=== PATIENT | female | born 1980 | race American Indian/Alaskan Native ===

== ENCOUNTER 2016-10-11 09:01 | Emergency (ER) | payer SELFPAY ==
[2016-10-11] MEDS ORDERED: ZOFRAN ONE (09:22)
[2016-10-11] MEDS ORDERED: NACL 0.9% 1000 ML 1,000 ML ONE (09:23)
[2016-10-11] MEDS ORDERED: NACL 0.9% 1000 ML 1,000 ML IV ONE (09:32)
[2016-10-11] MEDS: ZOFRAN IV ONE (09:37)
[2016-10-11] MEDS: NACL 0.9% 1000 ML 1,000 ML IV ONE (09:37)
--- NOTE | 2016-10-11 09:39 | Emergency Department Report ---
ED Abdominal Pain HPI - General Chief Complaint: Abdominal Pain Stated Complaint: ABDOMINAL PAIN Time Seen by Provider: 10/11/16 09:11 Source: patient Mode of arrival: Stretcher Limitations: No Limitations - History of Present Illness Initial Comments: 36-year-old female here with abdominal pain nausea vomiting. Patient states that she developed abdominal pain last night. Started vomiting overnight. Presents here with continued nausea vomiting and crampy abdominal pain. She describes pain as diffuse and throughout her abdomen. No diarrhea no fevers chills. No dysuria. Patient denies . -: Sudden Location: diffuse Radiation: none Migration to: no migration Severity: moderate Quality: cramping Consistency: constant Associated Symptoms: nausea, vomiting - Related Data Previous Rx's Medication Instructions Recorded Last Taken Type Ibuprofen [Motrin] 600 mg PO Q8H PRN #30 tablet 10/11/16 Unknown Rx Ondansetron [Zofran Odt] 4 mg PO Q8HR PRN #10 tab.rapdis 10/11/16 Unknown Rx Allergies Allergy/AdvReac Type Severity Reaction Status Date / Time iodine Allergy Rash Verified 10/11/16 09:28 ED Review of Systems ROS: Stated complaint: ABDOMINAL PAIN Other details as noted in HPI Comment: All other systems reviewed and negative Constitutional: denies: chills, fever Eyes: denies: eye pain, eye discharge, vision change ENT: denies: ear pain, throat pain Respiratory: denies: cough, shortness of breath, wheezing Cardiovascular: denies: chest pain, palpitations Endocrine: no symptoms reported Gastrointestinal: abdominal pain, nausea. denies: diarrhea, constipation, hematemesis, melena, hematochezia Genitourinary: denies: urgency, dysuria, discharge Musculoskeletal: denies: back pain, joint swelling, arthralgia Skin: denies: rash, lesions Neurological: denies: headache, weakness, paresthesias Psychiatric: denies: anxiety, depression Hematological/Lymphatic: denies: easy bleeding, easy bruising ED Past Medical Hx - Past Medical History Previous Medical History?: No Hx Asthma: Yes Additional medical history: Bronchitis - Surgical History Past Surgical History?: Yes Additional Surgical History: tubal ligation - Family History Family history: no significant - Social History Smoking Status: Never Smoker Substance Use Type: None - Medications Home Medications: Home Medications Medication Instructions Recorded Confirmed Last Taken Type Ibuprofen [Motrin] 600 mg PO Q8H PRN #30 tablet 10/11/16 Unknown Rx Ondansetron [Zofran Odt] 4 mg PO Q8HR PRN #10 tab.rapdis 10/11/16 Unknown Rx ED Physical Exam - General Limitations: No Limitations General appearance: alert, in no apparent distress - Head Head exam: Present: atraumatic, normocephalic - Eye Eye exam: Present: normal appearance. Absent: scleral icterus, conjunctival injection - ENT ENT exam: Present: mucous membranes moist - Neck Neck exam: Present: normal inspection - Respiratory Respiratory exam: Present: normal lung sounds bilaterally. Absent: respiratory distress, wheezes, rales - Cardiovascular Cardiovascular Exam: Present: regular rate, normal rhythm. Absent: systolic murmur, diastolic murmur, rubs, gallop - GI/Abdominal GI/Abdominal exam: Present: soft, normal bowel sounds - Extremities Exam Extremities exam: Present: normal inspection - Back Exam Back exam: Present: normal inspection - Neurological Exam Neurological exam: Present: alert, oriented X3 - Psychiatric Psychiatric exam: Present: normal affect, normal mood - Skin Skin exam: Present: warm, dry, intact, normal color. Absent: rash ED Course Vital Signs 10/11/16 10/11/16 10/11/16 09:23 09:42 10:00 Temperature 97.4 F L Pulse Rate 96 H 58 L Respiratory 28 H 28 H 18 Rate Blood Pressure 111/61 Blood Pressure 119/53 [Right] O2 Sat by Pulse 99 Oximetry 10/11/16 10/11/16 10:25 14:30 Temperature Pulse Rate 69 58 L Respiratory 18 18 Rate Blood Pressure Blood Pressure 119/53 103/59 [Right] O2 Sat by Pulse Oximetry ED Medical Decision Making - Lab Data Result diagrams: 10/11/16 09:54 10/11/16 09:54 Laboratory Results - last 24 hr 10/11/16 10/11/16 10/11/16 09:54 09:54 09:54 WBC 16.2 H RBC 4.07 Hgb 12.7 Hct 39.1 MCV 96 MCH 31 MCHC 32 RDW 12.7 L Plt Count 175 Lymph % (Auto) 6.0 L Kleberg % (Auto) 3.4 Eos % (Auto) 0.3 Baso % (Auto) 0.3 Lymph # 1.0 L Kleberg # 0.5 Eos # 0.0 Baso # 0.0 Seg Neutrophils % 90.0 H Seg Neutrophils # 14.6 H Sodium 140 Potassium 3.7 Chloride 101.7 Carbon Dioxide 20 L Anion Gap 22 BUN 10 Creatinine 0.8 Estimated GFR > 60 BUN/Creatinine Ratio 12.50 Glucose 133 H Calcium 8.3 L Total Bilirubin 0.40 AST 21 ALT 6 L Alkaline Phosphatase 43 Total Protein 5.8 L Albumin 3.7 L Albumin/Globulin Ratio 1.8 Lipase 18 HCG, Qual Negative Urine Bilirubin Urine RBC (Auto) U Epithel Cells (Auto) 10/11/16 Unknown WBC RBC Hgb Hct MCV MCH MCHC RDW Plt Count Lymph % (Auto) Kleberg % (Auto) Eos % (Auto) Baso % (Auto) Lymph # Kleberg # Eos # Baso # Seg Neutrophils % Seg Neutrophils # Sodium Potassium Chloride Carbon Dioxide Anion Gap BUN Creatinine Estimated GFR BUN/Creatinine Ratio Glucose Calcium Total Bilirubin AST ALT Alkaline Phosphatase Total Protein Albumin Albumin/Globulin Ratio Lipase HCG, Qual Urine Bilirubin Neg Urine RBC (Auto) 2.0 U Epithel Cells (Auto) 1.0 - Medical Decision Making 36-year-old female here with abdominal pain and nausea vomiting. Unclear source at this point. Do not suspect a surgical cause and she does not have an acute abdomen. Plan to check labs including CBC chemistry lipase UA and and plan to reassess after IV fluids and Zofran and morphine. CT shows ovarian cyst. Patient's pain is significantly improved. I discussed the need for ultrasound to better characterize Uzair. Patient understands and agrees to this plan. Plan the ultrasound reading and if good blood flow and no obvious torsion plan to discharge patient home. I do not suspect torsion as this patient's pain is significantly relieved. Portions of this chart were dictated with dictation software. There may be dictation errors contained within this note. Critical care attestation.: If time is entered above; I have spent that time in minutes in the direct care of this critically ill patient, excluding procedure time. ED Disposition Clinical Impression: Ovarian cyst Disposition: - TO HOME OR SELFCARE Is pt being admited?: No Condition: Stable Instructions: Abdominal Pain (ED), Ovarian Cyst (ED) Prescriptions: Ibuprofen [Motrin] 600 mg PO Q8H PRN #30 tablet PRN Reason: Pain Ondansetron [Zofran Odt] 4 mg PO Q8HR PRN #10 tab.rapdis PRN Reason: Nausea And Vomiting Referrals: PRIMARY CARE,MD [Primary Care Provider] - 3-5 Days
[2016-10-11] MEDS: MORPHINE IV ONE (09:45)
[2016-10-11 10:20] LABS: Basophils % (Auto) 0.3 % (0.0-1.8); Eosinophils % (Auto) 0.3 % (0.0-4.3); Hematocrit 39.1 % (30.3-42.9); Hemoglobin 12.7 gm/dl (10.1-14.3); Mean Corpuscular HGB Conc 32 % (30-34); Mean Corpuscular Hemoglobin 31 pg (28-32); Mean Corpuscular Volume 96 fl (79-97); Platelet Count 175 K/mm3 (140-440); Red Blood Count 4.07 M/mm3 (3.65-5.03); Red Cell Distribution Width 12.7 % (13.2-15.2); White Blood Count 16.2 K/mm3 (4.5-11.0)
[2016-10-11 10:26] LABS: Alanine Aminotransferase 6 units/L (7-56); Albumin 3.7 g/dL (3.9-5); Albumin/Globulin Ratio 1.8 %; Alkaline Phosphatase 43 units/L (35-129); Anion Gap 22 mmol/L; Blood Urea Nitrogen 10 mg/dL (7-17); Calcium 8.3 mg/dL (8.4-10.2); Carbon Dioxide 20 mmol/L (22-30); Chloride 101.7 mmol/L (98-107); Glucose 133 mg/dL (65-100); Lipase 18 units/L (13-60); Potassium 3.7 mmol/L (3.6-5.0); Sodium 140 mmol/L (137-145); Total Protein 5.8 g/dL (6.3-8.2)
[2016-10-11 10:38] LABS: Bilirubin,Urine NEG (Negative); Blood,Urine SM (Negative); Ketones,Urine 80 mg/dL (Negative); Leukocyte Esterase,Urine NEG (Negative); Mucus,Urine FEW /HPF; Nitrite,Urine NEG (Negative); Protein,Urine <15 mg/dL mg/dL (Negative); Urobilinogen,Urine < 2.0 mg/dL (<2.0)
--- NOTE | 2016-10-11 12:09 | Cat Scan Report ---
CT OF THE ABDOMEN AND PELVIS WITHOUT CONTRAST HISTORY: Abdominal pain, nausea and vomiting. TECHNIQUE: Helical CT without contrast. Sagittal and coronal reformatted images. FINDINGS: A 4.5 x 3.5 x 4.1 cm cyst is identified in the right adnexa. This presumably represents a right ovarian cyst. The left adnexa is unremarkable. Intrauterine device is noted within the uterus. Within the limits of a noncontrast exam, the remaining abdominal and pelvic viscera are within normal limits. The liver, biliary system, pancreas, spleen, kidneys, adrenal glands and bladder are unremarkable. The bowel loops are normal caliber and wall thickness. Normal appendix. The aorta is normal caliber. No ascites, bulky adenopathy or inflammatory changes. The lung bases are clear. Normal heart size. No suspicious bony lesion. IMPRESSION: Right ovarian cyst as described. No acute inflammatory process is appreciated.
[2016-10-11 15:02] VITALS: BP 103/59
--- NOTE | 2016-10-11 16:14 | Ultrasound Report ---
Transvaginal pelvic ultrasound. History: Pelvic pain. Findings: Uterus is normal in size and configuration. The endometrial echo is normal in thickness at 3.6 mm. A linear echogenic structure within the endometrium is consistent with an IUD. There is a 3.6 cm in diameter cystic mass in the right ovary. There is a 2.5 cm in diameter complex lesion in the left ovary. There is no fluid within the cul-de-sac. Impression: 1. 3.6 cm right ovarian cyst. 2. 2.5 cm in diameter nonspecific complex lesion in the left ovary.
== END 2016-10-11 16:45 | disposition home or self-care (01) ==
LOC: ED 09:01
DX: N83.201 Unspecified ovarian cyst, right side (principal); J45.909 Unspecified asthma, uncomplicated; Z88.8 Allergy status to other drugs, medicaments and biological substances
CPT/HCPCS: 36415; 74176; 76830; 80053; 81001; 83690; 84703; 85025; 96361; 96374; 96375; 99284; J2270; J2405; J7030

== ENCOUNTER 2016-10-21 04:53 | Emergency (ER) | payer SELFPAY ==
[2016-10-21] MEDS ORDERED: DUONEB *Not for PRN Use IH ONE (05:07)
--- NOTE | 2016-10-21 07:31 | Emergency Department Report ---
ED Asthma HPI - General Chief Complaint: Adult Asthma Stated Complaint: SOB, WHEZZING Source: patient Mode of arrival: Ambulatory Limitations: No Limitations - History of Present Illness Initial Comments: 36 y/o F with a pmhx of asthma and bronchitis presents with yellow productive cough, mild nasal congestion, SOB, wheezing, and chest tightness. Pt states that she gets yearly bronchitis infections and has been seen for this multiple times in the past few years. Pt has been taking her inhaler multiple times with no relief of her symptoms. Pt denies any reported sick contacts. Denies a hx of pneumonia or smoking hx. Pt states that she is not and denies UPT at this time. MD Complaint: shortness of breath, wheezing -: days(s) (3) Asthma History: adult onset, history of prior ED visit (for bronchitis) Severity: moderate Context: none known Associated Symptoms: productive cough. denies: fever, chest pain, hemoptysis, leg edema, syncope Treatments Prior to Arrival: inhaled bronchodilator - Related Data Current Asthma Therapy: inhaled bronchodilator Previous Rx's Medication Instructions Recorded Last Taken Type Ibuprofen [Motrin] 600 mg PO Q8H PRN #30 tablet 10/11/16 Unknown Rx Ondansetron [Zofran Odt] 4 mg PO Q8HR PRN #10 tab.rapdis 10/11/16 Unknown Rx Albuterol Sulfate [Proair 90 mcg IH Q4-6H PRN #1 aer.pow.ba 10/21/16 Unknown Rx Respiclick] Azithromycin [Zithromax Z-JACKY] 250 mg PO DAILY #6 tablet 10/21/16 Unknown Rx predniSONE [Deltasone] 20 mg PO QDAY #5 tab 10/21/16 Unknown Rx Allergies Allergy/AdvReac Type Severity Reaction Status Date / Time iodine Allergy Rash Verified 10/11/16 09:28 ED Review of Systems ROS: Stated complaint: SOB, WHEZZING Other details as noted in HPI Constitutional: denies: chills, fever, weakness Eyes: denies: eye pain, eye discharge, vision change ENT: congestion. denies: ear pain, throat pain Respiratory: cough, shortness of breath, wheezing Cardiovascular: denies: chest pain, palpitations Endocrine: no symptoms reported Gastrointestinal: denies: abdominal pain, nausea, diarrhea Musculoskeletal: denies: back pain, joint swelling, arthralgia Skin: denies: rash, lesions Neurological: denies: headache, weakness, paresthesias Psychiatric: denies: anxiety, depression Hematological/Lymphatic: denies: easy bleeding, easy bruising ED Past Medical Hx - Past Medical History Previous Medical History?: Yes Hx Asthma: Yes Additional medical history: Bronchitis - Surgical History Past Surgical History?: Yes Additional Surgical History: tubal ligation - Social History Smoking Status: Current Every Day Smoker Substance Use Type: None - Medications Home Medications: Home Medications Medication Instructions Recorded Confirmed Last Taken Type Ibuprofen [Motrin] 600 mg PO Q8H PRN #30 tablet 10/11/16 Unknown Rx Ondansetron [Zofran Odt] 4 mg PO Q8HR PRN #10 tab.rapdis 10/11/16 Unknown Rx Albuterol Sulfate [Proair 90 mcg IH Q4-6H PRN #1 aer.pow.ba 10/21/16 Unknown Rx Respiclick] Azithromycin [Zithromax Z-JACKY] 250 mg PO DAILY #6 tablet 10/21/16 Unknown Rx predniSONE [Deltasone] 20 mg PO QDAY #5 tab 10/21/16 Unknown Rx ED Physical Exam - General Limitations: No Limitations General appearance: alert, in no apparent distress - Head Head exam: Present: atraumatic, normocephalic - Eye Eye exam: Present: normal appearance - ENT ENT exam: Present: normal orophraynx, other (PND noted at the back of the throat ) - Neck Neck exam: Present: normal inspection - Respiratory Respiratory exam: Present: wheezes (mild wheezing noted at the posterior lung centeno, s/p 2 neb treatment there was no wheezing auscultated in all lung centeno and pt states that she was feeling better), other (no assessory muscle use or panting with breathing noted on examination). Absent: respiratory distress, rales, rhonchi, stridor, chest wall tenderness, accessory muscle use, decreased breath sounds, prolonged expiratory - Cardiovascular Cardiovascular Exam: Present: regular rate, normal rhythm. Absent: systolic murmur, diastolic murmur, rubs, gallop - Back Exam Back exam: Present: normal inspection - Neurological Exam Neurological exam: Present: alert, oriented X3 - Skin Skin exam: Present: warm, dry, intact, normal color. Absent: rash ED Course Vital Signs 10/21/16 10/21/16 10/21/16 05:02 05:18 05:26 Temperature 98.4 F Pulse Rate 92 H Pulse Rate [ 89 92 H Anterior Bilateral Throughout] Respiratory 28 H Rate Respiratory 20 20 Rate [Anterior Bilateral Throughout] Blood Pressure 113/68 Blood Pressure [Right] O2 Sat by Pulse 96 Oximetry 10/21/16 10/21/16 10/21/16 08:53 09:40 10:23 Temperature 98.7 F Pulse Rate 87 Pulse Rate [ 105 H 78 Anterior Bilateral Throughout] Respiratory 18 Rate Respiratory 20 20 Rate [Anterior Bilateral Throughout] Blood Pressure Blood Pressure 117/77 [Right] O2 Sat by Pulse 92 Oximetry 10/21/16 10:41 Temperature Pulse Rate Pulse Rate [ Anterior Bilateral Throughout] Respiratory Rate Respiratory Rate [Anterior Bilateral Throughout] Blood Pressure Blood Pressure [Right] O2 Sat by Pulse 98 Oximetry - Reevaluation(s) Reevaluation #1: 10/21/16 07:29 around 5:15 AM this morning pt was given a duoneb treatment. I have ordered a CXR and EKG at this time. I have also ordered a shot of solu- medrol 40 mg for the wheezing. Pt was also ordered an albuterol treatment for her symptoms. 10/21/16 15:03 ED Medical Decision Making - EKG Data When compared to previous EKG there are: previous EKG unavailable Interpretation: normal EKG 10/21/16 15:08 Vent rate: 85 bpm DE interval:128 ms QRS duration: 80 ms QT/QTc: 366/435 ms PRT- axes 71 77 73 normal sinus rhythm, normal EKG - Radiology Data Radiology results: image reviewed RADIOLOGIST- unremarkable CXR - Medical Decision Making Pt is a known asthmatic, she also has recurrent bronchitis. Pt was given 2 breathing treatments this morning, one duoneb and the other albuterol. Pt reported to improvement s/p second treatment. ekg was conducted to r/u cardiac pathology due to the chest discomfort and SOB- unremarkable. Pt's CXR was unremarkable. Pt was diagnosed with bronchitis: given azithromycin, prednisone , and albuterol for the symptoms. Pt was discharged in stable condition, in no resp distress, and was alert and oriented. Critical care attestation.: If time is entered above; I have spent that time in minutes in the direct care of this critically ill patient, excluding procedure time. ED Disposition Clinical Impression: Bronchitis Disposition: DC-01 TO HOME OR SELFCARE Is pt being admited?: No Does the pt Need Aspirin: No Condition: Stable Instructions: Asthma (ED), Acute Bronchitis (ED), Chronic Bronchitis (ED) Additional Instructions: Please avoid all NSIADS while on prednisone. Please take medications as prescribed, if cough continues I would recommend an OTC cough suppressant. Please follow-up with PCP within 3-5 days. Please return to the ER with worsening symptoms such as: fever, chills, chest pain, SOB, or cough. Prescriptions: Albuterol Sulfate [Proair Respiclick] 90 mcg IH Q4-6H PRN #1 aer.pow.ba PRN Reason: Shortness Of Breath Azithromycin [Zithromax Z-JACKY] 250 mg PO DAILY #6 tablet predniSONE [Deltasone] 20 mg PO QDAY #5 tab Referrals: [facility] [Outside] - 3-5 Days ELISE HARRIS MD [Staff Physician] - 3-5 Days [facility]IMARY [facility]ARE, [Primary Care Provider] - 3-5 Days Forms: Work/School Release Form(ED)
--- NOTE | 2016-10-21 07:35 | XRay Report ---
Chest 2 views: History: Cough and chest tightness. Findings: Normal cardiomediastinal silhouette. Trachea is midline. No consolidation, pneumothorax or pleural effusion. Impression: No acute cardiopulmonary findings.
[2016-10-21] MEDS ORDERED: PROVENTIL IH ONE (07:57)
[2016-10-21 10:24] VITALS: BP 117/77
== END 2016-10-21 11:36 | disposition home or self-care (01) ==
LOC: ED 04:53
DX: J40 Bronchitis, not specified as acute or chronic (principal); F17.210 Nicotine dependence, cigarettes, uncomplicated; Z88.8 Allergy status to other drugs, medicaments and biological substances
CPT/HCPCS: 71020; 93005; 93010; 94640; 94760; 96372; 99283; J2920

== ENCOUNTER 2017-09-25 18:44 | Emergency (ER) | payer SELFPAY ==
[2017-09-25] MEDS ORDERED: PROVENTIL IH ONE ×2 (19:37→19:45)
[2017-09-25 19:44] VITALS: BP 113/73
--- NOTE | 2017-09-25 20:40 | Emergency Department Report ---
Upper Respiratory HPI - HPI Chief Complaint: Adult Asthma Stated Complaint: TROUBLE BREATHING Time Seen by Provider: 09/25/17 20:33 Duration: 3 Days URI Symptoms: Rhinorrhea: Yes, Sore Throat: Yes, Ear Pain: No, Cough: Yes, Shortness of Breath: Yes, Sick Contacts: No, Unable to Take Fluids: No, Urine Output Abnormal: No, Listless Behavior: No Other History: Patient states that F [place] female history of bronchitis who presents with shortness of breath wheezing 3 days states albuterol inhaler, productive yellow /green patient fever chills symptoms improved with nebulizer treatment given in triage - Home Meds and Allergies Home Medications: Previous Rx's Medication Instructions Recorded Last Taken Type Ondansetron [Zofran Odt] 4 mg PO Q8HR PRN #10 tab.rapdis 10/11/16 Unknown Rx Albuterol Sulfate [Proair 90 mcg IH Q4-6H PRN #1 aer.pow.ba 09/25/17 Unknown Rx Respiclick] Azithromycin [Zithromax Z-JACKY] 250 mg PO DAILY #6 tablet 09/25/17 Unknown Rx Benzonatate [Tessalon Perle] 100 mg PO TID PRN #30 capsule 09/25/17 Unknown Rx Ibuprofen [Motrin 600 MG tab] 600 mg PO Q8H PRN #30 tablet 09/25/17 Unknown Rx predniSONE [Deltasone] 40 mg PO QDAY #10 tab 09/25/17 Unknown Rx Allergies/Adverse Reactions: Allergies Allergy/AdvReac Type Severity Reaction Status Date / Time iodine Allergy Rash Verified 10/11/16 09:28 ED Review of Systems ROS: Stated complaint: TROUBLE BREATHING Other details as noted in HPI Constitutional: denies: chills, fever Eyes: denies: eye pain, eye discharge, vision change ENT: ear pain, throat pain, congestion Respiratory: cough, shortness of breath, wheezing Cardiovascular: denies: chest pain, palpitations Endocrine: no symptoms reported Gastrointestinal: denies: abdominal pain, nausea, diarrhea Genitourinary: denies: urgency, dysuria, discharge Musculoskeletal: denies: back pain, joint swelling, arthralgia Skin: denies: rash, lesions Neurological: denies: headache, weakness, paresthesias Psychiatric: denies: anxiety, depression Hematological/Lymphatic: denies: easy bleeding, easy bruising ED Past Medical Hx - Past Medical History Hx Asthma: Yes Additional medical history: Bronchitis - Surgical History Additional Surgical History: tubal ligation - Social History Smoking Status: Current Every Day Smoker Substance Use Type: None - Medications Home Medications: Home Medications Medication Instructions Recorded Confirmed Last Taken Type Ondansetron [Zofran Odt] 4 mg PO Q8HR PRN #10 tab.rapdis 10/11/16 Unknown Rx Albuterol Sulfate [Proair 90 mcg IH Q4-6H PRN #1 aer.pow.ba 09/25/17 Unknown Rx Respiclick] Azithromycin [Zithromax Z-JACKY] 250 mg PO DAILY #6 tablet 09/25/17 Unknown Rx Benzonatate [Tessalon Perle] 100 mg PO TID PRN #30 capsule 09/25/17 Unknown Rx Ibuprofen [Motrin 600 MG tab] 600 mg PO Q8H PRN #30 tablet 09/25/17 Unknown Rx predniSONE [Deltasone] 40 mg PO QDAY #10 tab 09/25/17 Unknown Rx ED Bronchiolitis Physical Exam - Exam General: Vital signs noted. No distress. Alert and acting appropriately. HEENT: Yes Pharyngeal Erythema, Yes Rhinorrhea, No Conjuctival Injection, No Dry Mucous Membranes Ear: Neither TM Bulge, Neither TM Erythema, Neither EAC Discharge Neck: No Adenopathy, No Rigidity Lungs: Yes Clear Lung Sounds, Yes Good Air Exchange, Yes Wheezes (mild exp upper lobes ), Yes Cough, No Stridor, No Nasal Flaring, No Retractions, No Use of Accessory Muscles Heart: Yes Regular, No Murmur Abdomen: Yes Normal Bowel Sounds, No Tenderness, No Peritoneal Signs Skin: No Rash, No Eczema Neurologic: Alert and oriented, no deficits. Musculoskeletal: Unremarkable. ED Bronchiolitis Tests - Testing Testing: CXR: Normal/Negative Treatments - Treaments Treatment: Improved Albuterol ED Physical Exam - General Limitations: No Limitations General appearance: alert, in no apparent distress - Head Head exam: Present: atraumatic, normocephalic - Eye Eye exam: Present: normal appearance - ENT ENT exam: Present: normal orophraynx, mucous membranes moist, TM's normal bilaterally, normal external ear exam - Expanded ENT Exam Expanded Throat exam: Positive: tonsillar erythema. Negative: normal inspection, tonsillar exudate, R peritonsillar mass, L peritonsillar mass - Neck Neck exam: Present: normal inspection, full ROM. Absent: tenderness, meningismus, lymphadenopathy, thyromegaly - Respiratory Respiratory exam: Present: normal lung sounds bilaterally, wheezes, chest wall tenderness. Absent: respiratory distress, rales, rhonchi, stridor, accessory muscle use, decreased breath sounds, prolonged expiratory - Cardiovascular Cardiovascular Exam: Present: regular rate, normal rhythm, normal heart sounds. Absent: systolic murmur, diastolic murmur, rubs, gallop - GI/Abdominal GI/Abdominal exam: Present: soft, normal bowel sounds. Absent: rebound, bruit, hernia - Rectal Rectal exam: Present: deferred - Extremities Exam Extremities exam: Present: normal inspection - Back Exam Back exam: Present: normal inspection - Neurological Exam Neurological exam: Present: alert, oriented X3 - Psychiatric Psychiatric exam: Present: normal affect, normal mood - Skin Skin exam: Present: warm, dry, intact, normal color. Absent: rash ED Course Vital Signs 09/25/17 19:37 Temperature 98.7 F Pulse Rate 83 Respiratory 18 Rate Blood Pressure 113/73 O2 Sat by Pulse 98 Oximetry ED Medical Decision Making - Radiology Data Radiology results: report reviewed, image reviewed no infiltrates no opacities - Medical Decision Making This is likely bronchitis as symptoms improve with the albuterol treatment 1 there is minimal exudate or wheezing at this time patient is hammertoe in ED without increased shortness of breath plan refill albuterol inhaler prednisone burst Tessalon Perles for cough ibuprofen for pain Z-Jacky follow-up with PCP in 2 -3 days as verbalizes understanding and agreement was signed will be DC'd home in stable condition at this time Critical care attestation.: If time is entered above; I have spent that time in minutes in the direct care of this critically ill patient, excluding procedure time. ED Disposition Clinical Impression: Bronchitis Disposition: DC-01 TO HOME OR SELFCARE Is pt being admited?: No Does the pt Need Aspirin: No Condition: Good Instructions: Chronic Bronchitis (ED) Prescriptions: Albuterol Sulfate [Proair Respiclick] 90 mcg IH Q4-6H PRN #1 aer.pow.ba PRN Reason: Shortness Of Breath Azithromycin [Zithromax Z-JACKY] 250 mg PO DAILY #6 tablet Benzonatate [Tessalon Perle] 100 mg PO TID PRN #30 capsule PRN Reason: Cough Ibuprofen [Motrin 600 MG tab] 600 mg PO Q8H PRN #30 tablet PRN Reason: Pain predniSONE [Deltasone] 40 mg PO QDAY #10 tab Referrals: [facility] [Outside] - 3-5 Days Forms: Work/School Release Form(ED) Time of Disposition: 20:45
[2017-09-25] MEDS ORDERED: DELTASONE PO ONE (20:41)
--- NOTE | 2017-09-25 21:05 | XRay Report ---
FINAL REPORT PROCEDURE: XR CHEST ROUTINE 2V TECHNIQUE: PA and lateral chest radiographs were obtained. CPT 35624 HISTORY: productive cough COMPARISON: No prior studies are available for comparison. FINDINGS: Heart: Normal. Mediastinum/Vessels: Normal. Lungs/Pleural space: No infiltrate, effusion, or pneumothorax. Bony thorax: No acute osseous abnormality. Other: IMPRESSION: No radiographic evidence of acute abnormality.
== END 2017-09-25 20:45 | disposition home or self-care (01) ==
LOC: ED 18:44
DX: J45.909 Unspecified asthma, uncomplicated (principal); F17.200 Nicotine dependence, unspecified, uncomplicated; Z98.51 Tubal ligation status; Z91.041 Radiographic dye allergy status
CPT/HCPCS: 71046; 94640; 99283; J7512

== ENCOUNTER 2018-07-13 07:56 | Emergency (ER) | payer MEDICARE, OTHER ==
[2018-07-13] MEDS ORDERED: IBUPROFEN PO ONE (08:59)
--- NOTE | 2018-07-13 09:26 | XRay Report ---
RIGHT RIBS, 3 VIEWS: History: pain. Routine views of the rib cage demonstrate normal mineralization with no significant contour abnormalities, fractures or destructive lesions. PA view of the chest demonstrates no underlying cardiopulmonary abnormalities, fluid or pneumothorax. IMPRESSION: Unremarkable right rib series.
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
[2018-07-13 15:22] VITALS: BP 125/75
== END 2018-07-13 10:30 | disposition home or self-care (01) ==
LOC: EEVIPCON 07:56 → ED 07:56
DX: S20.211A Contusion of right front wall of thorax, initial encounter (principal); J45.909 Unspecified asthma, uncomplicated; Z87.891 Personal history of nicotine dependence; Z91.041 Radiographic dye allergy status; Y04.0XXA Assault by unarmed brawl or fight, initial encounter; Y93.89 Activity, other specified; Y92.89 Other specified places as the place of occurrence of the external cause; Y99.8 Other external cause status

== ENCOUNTER 2019-09-04 00:38 | Emergency (ER) | payer SELFPAY ==
[2019-09-04] MEDS ORDERED: IPRATROPIUM/ALBUTEROL SULFATE 3 ML AMPUL.NEB IH ONE (00:46)
[2019-09-04] MEDS ORDERED: IPRATROPIUM 0.02% NEBU 2.5 ML IH ONE (01:04)
[2019-09-04] MEDS ORDERED: ALBUTEROL 2.5 MG/3 ML NEBU IH ONE (01:04)
[2019-09-04] MEDS ORDERED: predniSONE 20 MG TAB PO ONE (01:05)
--- NOTE | 2019-09-04 01:42 | XRay Report ---
CHEST 1 VIEW 09/04/2019 12:35 AM INDICATION / CLINICAL INFORMATION: cough, wheezing. COMPARISON: Right rib series from 07/13/2018. FINDINGS: SUPPORT DEVICES: None. HEART / MEDIASTINUM: No significant abnormality. LUNGS / PLEURA: No significant pulmonary or pleural abnormality. No pneumothorax. ADDITIONAL FINDINGS: No significant additional findings. IMPRESSION: 1. No acute abnormality of the chest. Signer Name: Ruben Clark MD Signed: 09/04/2019 1:38 AM Workstation Name: [id number]
--- NOTE | 2019-09-04 02:19 | Emergency Department Report ---
ED Shortness of Breath HPI - General Chief Complaint: Adult Asthma Stated Complaint: WALTER,ASTHMA Time Seen by Provider: 09/04/19 01:00 Source: patient Mode of arrival: Ambulatory Limitations: No Limitations - History of Present Illness Initial Comments: Patient is a 39-year-old F [place] female who is presenting with cough and wheeze. Patient has a history of asthma and occasional acute bronchitis. Patient states she is had some increased shortness of breath and wheezing for the last 2 days. She does not have any medications for home treatment. She denies fevers chills nausea vomiting diarrhea. - Related Data Previous Rx's Medication Instructions Recorded Last Taken Type Ondansetron [Zofran Odt] 4 mg PO Q8HR PRN #10 tab.rapdis 10/11/16 Unknown Rx Albuterol Sulfate [Proair 90 mcg IH Q4-6H PRN #1 aer.pow.ba 09/25/17 Unknown Rx Respiclick] Azithromycin [Zithromax Z-JACKY] 250 mg PO DAILY #6 tablet 09/25/17 Unknown Rx Benzonatate [Tessalon Perle] 100 mg PO TID PRN #30 capsule 09/25/17 Unknown Rx Ibuprofen [Motrin 600 MG tab] 600 mg PO Q8H PRN #30 tablet 09/25/17 Unknown Rx predniSONE [Deltasone] 40 mg PO QDAY #10 tab 09/25/17 Unknown Rx Clindamycin [Clindamycin CAP] 300 mg PO Q8H 10 Days #30 cap 12/14/17 Unknown Rx HYDROcodone/ACETAMINOPHEN [[place] 1 each PO Q6H PRN #12 tablet 12/14/17 Unknown Rx 5-325 Tablet] Ibuprofen [Motrin 600 MG tab] 600 mg PO Q8H PRN #15 tablet 12/14/17 Unknown Rx Promethazine [Phenergan TAB] 25 mg PO Q6HR PRN #12 tab 12/14/17 Unknown Rx ALBUTEROL Inhaler(NF) [VENTOLIN 1 puff IH Q4-6H PRN #1 inha 06/15/18 Unknown Rx Inhaler(NF)] Prednisone [predniSONE 10 mg 10 mg PO .TAPER #1 tab.ds.pk 06/15/18 Unknown Rx (6-Day Pack, 21 Tabs)] Ketorolac [Toradol] 10 mg PO Q6H PRN #12 tablet 07/13/18 Unknown Rx Albuterol Mdi (or & Nicu Only) 2 puff IH QID PRN #1 inhalation 09/04/19 Unknown Rx [ProAir HFA Inhaler] Benzonatate [Tessalon Perles] 100 mg PO Q8HR #10 capsule 09/04/19 Unknown Rx predniSONE [Deltasone] 20 mg PO QDAY #5 tab 09/04/19 Unknown Rx Allergies Allergy/AdvReac Type Severity Reaction Status Date / Time iodine Allergy Rash Verified 06/15/18 07:09 ED Review of Systems ROS: Stated complaint: WALTER,ASTHMA Other details as noted in HPI Comment: All other systems reviewed and negative ED Past Medical Hx - Past Medical History Previous Medical History?: Yes Hx Asthma: Yes (Bronchitis) Additional medical history: Bronchitis - Surgical History Past Surgical History?: Yes Additional Surgical History: tubal ligation - Social History Smoking Status: Current Some Day Smoker Substance Use Type: None - Medications Home Medications: Home Medications Medication Instructions Recorded Confirmed Last Taken Type Ondansetron [Zofran Odt] 4 mg PO Q8HR PRN #10 tab.rapdis 10/11/16 Unknown Rx Albuterol Sulfate [Proair 90 mcg IH Q4-6H PRN #1 aer.pow.ba 09/25/17 Unknown Rx Respiclick] Azithromycin [Zithromax Z-JACKY] 250 mg PO DAILY #6 tablet 09/25/17 Unknown Rx Benzonatate [Tessalon Perle] 100 mg PO TID PRN #30 capsule 09/25/17 Unknown Rx Ibuprofen [Motrin 600 MG tab] 600 mg PO Q8H PRN #30 tablet 09/25/17 Unknown Rx predniSONE [Deltasone] 40 mg PO QDAY #10 tab 09/25/17 Unknown Rx Clindamycin [Clindamycin CAP] 300 mg PO Q8H 10 Days #30 cap 12/14/17 Unknown Rx HYDROcodone/ACETAMINOPHEN [[place] 1 each PO Q6H PRN #12 tablet 12/14/17 Unknown Rx 5-325 Tablet] Ibuprofen [Motrin 600 MG tab] 600 mg PO Q8H PRN #15 tablet 12/14/17 Unknown Rx Promethazine [Phenergan TAB] 25 mg PO Q6HR PRN #12 tab 12/14/17 Unknown Rx ALBUTEROL Inhaler(NF) [VENTOLIN 1 puff IH Q4-6H PRN #1 inha 06/15/18 Unknown Rx Inhaler(NF)] Prednisone [predniSONE 10 mg 10 mg PO .TAPER #1 tab.ds.pk 06/15/18 Unknown Rx (6-Day Pack, 21 Tabs)] Ketorolac [Toradol] 10 mg PO Q6H PRN #12 tablet 07/13/18 Unknown Rx Albuterol Mdi (or & Nicu Only) 2 puff IH QID PRN #1 inhalation 09/04/19 Unknown Rx [ProAir HFA Inhaler] Benzonatate [Tessalon Perles] 100 mg PO Q8HR #10 capsule 09/04/19 Unknown Rx predniSONE [Deltasone] 20 mg PO QDAY #5 tab 09/04/19 Unknown Rx ED Physical Exam - General Limitations: No Limitations General appearance: alert, in no apparent distress - Head Head exam: Present: atraumatic, normocephalic - Eye Eye exam: Present: normal appearance, PERRL, EOMI - ENT ENT exam: Present: mucous membranes moist - Neck Neck exam: Present: normal inspection. Absent: tenderness - Respiratory Respiratory exam: Present: respiratory distress, wheezes, accessory muscle use, prolonged expiratory. Absent: normal lung sounds bilaterally, rales, rhonchi, chest wall tenderness, decreased breath sounds - Cardiovascular Cardiovascular Exam: Present: regular rate, normal rhythm, normal heart sounds. Absent: systolic murmur, diastolic murmur, rubs, gallop - GI/Abdominal GI/Abdominal exam: Present: soft, normal bowel sounds. Absent: distended, tenderness, guarding, rebound - Extremities Exam Extremities exam: Present: normal inspection - Back Exam Back exam: Present: normal inspection - Neurological Exam Neurological exam: Present: alert, oriented X3 - Psychiatric Psychiatric exam: Present: normal affect, normal mood - Skin Skin exam: Present: warm, dry, intact, normal color. Absent: rash ED Course Vital Signs 09/04/19 09/04/19 09/04/19 00:41 01:06 01:16 Temperature 98.1 F Pulse Rate 74 Pulse Rate [ 92 H 95 H Anterior Bilateral Throughout] Respiratory 22 Rate Respiratory 16 18 Rate [Anterior Bilateral Throughout] Blood Pressure 123/82 O2 Sat by Pulse 100 Oximetry ED Medical Decision Making - Radiology Data [facility] [address] [place] [address] XRay Report Signed Patient: RICH SNELL MR#: [id number] : 1980 Acct:[id number] Age/Sex: 39 / F ADM Date: 09/04/19 Loc: ED Attending Dr: Ordering Physician: RENEE CABALLERO MD Date of Service: 09/04/19 Procedure(s): XR chest 1V ap Accession Number(s): [id number] cc: RENEE CABALLERO MD Fluoro Time In Minutes: CHEST 1 VIEW 09/04/2019 12:35 AM INDICATION / CLINICAL INFORMATION: cough, wheezing. COMPARISON: Right rib series from 07/13/2018. FINDINGS: SUPPORT DEVICES: None. HEART / MEDIASTINUM: No significant abnormality. LUNGS / PLEURA: No significant pulmonary or pleural abnormality. No pneumothorax. ADDITIONAL FINDINGS: No significant additional findings. IMPRESSION: 1. No acute abnormality of the chest. Signer Name: Ruben Clark MD Signed: 09/04/2019 1:38 AM Workstation Name: [id number] - Medical Decision Making Patient is a 39-year-old F [place] female is presenting with wheezing diffusely. Patient received hour-long neb treatment which did improve her symptoms. At the time of discharge patient lungs are clear. She states she feels much improved and is ready for discharge. Patient's chest x-ray shows no acute abnormality and it does not appear to be advanced stages of pulmonary infiltrate consistent with COVID-19 needing admission. Patient will be discharged home with medications for symptomatic relief Critical care attestation.: If time is entered above; I have spent that time in minutes in the direct care of this critically ill patient, excluding procedure time. ED Disposition Clinical Impression: Acute asthma exacerbation Qualifiers: Asthma severity: moderate Asthma persistence: unspecified Qualified Code(s): J45.901 - Unspecified asthma with (acute) exacerbation Disposition: DC-01 TO HOME OR SELFCARE Is pt being admited?: No Does the pt Need Aspirin: No Condition: Stable Instructions: Asthma (ED) Referrals: MARIA DEL ROSARIO NICHOLSON MD [Staff Physician] - 3-5 Days Time of Disposition: 02:26
[2019-09-04 03:03] VITALS: BP 100/55
== END 2019-09-04 03:00 | disposition home or self-care (01) ==
LOC: ED 00:38
DX: J45.901 Unspecified asthma with (acute) exacerbation (principal); F17.200 Nicotine dependence, unspecified, uncomplicated; Z98.51 Tubal ligation status; Z91.041 Radiographic dye allergy status; Z79.899 Other long term (current) drug therapy
CPT/HCPCS: 71045; 94640; 99283; J7512; 94644

== ENCOUNTER 2019-11-18 06:17 | Emergency (ER) | payer SELFPAY ==
[2019-11-18] MEDS ORDERED: methylPREDNISolone Sod Succinate 125 MG/2 ML INJ IV ONE (06:29)
[2019-11-18] MEDS ORDERED: MAGNESIUM SULFATE 2 GM/50 ML BAG IV ONE (06:30)
[2019-11-18] MEDS ORDERED: IPRATROPIUM/ALBUTEROL SULFATE 3 ML AMPUL.NEB IH ONE (06:31)
--- NOTE | 2019-11-18 08:00 | Emergency Department Report ---
ED Asthma HPI - General Chief Complaint: Adult Asthma Stated Complaint: SHORT OF BREATH Time Seen by Provider: 11/18/19 07:17 Source: patient Mode of arrival: Ambulatory Limitations: No Limitations - History of Present Illness Initial Comments: pt is a 39 yo female who presents to the ED with c/o asthma exacerbation that began this morning. she states that her inhaler broke this morning so she was unable to use her rescue inhaler. she has associated SOB, wheezing, and occasional dry cough. she denies any fever, n/v/d, ear pain, chest congestion, productive cough, sore throat. PMHx asthma. no allergies to meds. LNMP: last week. she has never been intubated for her asthma. she has never had to be admitted for asthma. - Related Data Previous Rx's Medication Instructions Recorded Last Taken Type Ondansetron [Zofran Odt] 4 mg PO Q8HR PRN #10 tab.rapdis 10/11/16 Unknown Rx Albuterol Sulfate [Proair 90 mcg IH Q4-6H PRN #1 aer.pow.ba 09/25/17 Unknown Rx Respiclick] Azithromycin [Zithromax Z-JACKY] 250 mg PO DAILY #6 tablet 09/25/17 Unknown Rx Benzonatate [Tessalon Perle] 100 mg PO TID PRN #30 capsule 09/25/17 Unknown Rx Ibuprofen [Motrin 600 MG tab] 600 mg PO Q8H PRN #30 tablet 09/25/17 Unknown Rx predniSONE [Deltasone] 40 mg PO QDAY #10 tab 09/25/17 Unknown Rx Clindamycin [Clindamycin CAP] 300 mg PO Q8H 10 Days #30 cap 12/14/17 Unknown Rx HYDROcodone/ACETAMINOPHEN [[place] 1 each PO Q6H PRN #12 tablet 12/14/17 Unknown Rx 5-325 Tablet] Ibuprofen [Motrin 600 MG tab] 600 mg PO Q8H PRN #15 tablet 12/14/17 Unknown Rx Promethazine [Phenergan TAB] 25 mg PO Q6HR PRN #12 tab 12/14/17 Unknown Rx ALBUTEROL Inhaler(NF) [VENTOLIN 1 puff IH Q4-6H PRN #1 inha 06/15/18 Unknown Rx Inhaler(NF)] Prednisone [predniSONE 10 mg 10 mg PO .TAPER #1 tab.ds.pk 06/15/18 Unknown Rx (6-Day Pack, 21 Tabs)] Ketorolac [Toradol] 10 mg PO Q6H PRN #12 tablet 07/13/18 Unknown Rx Albuterol Mdi (or & Nicu Only) 2 puff IH QID PRN #1 inhalation 09/04/19 Unknown Rx [ProAir HFA Inhaler] Benzonatate [Tessalon Perles] 100 mg PO Q8HR #10 capsule 09/04/19 Unknown Rx predniSONE [Deltasone] 20 mg PO QDAY #5 tab 09/04/19 Unknown Rx Albuterol Sulfate [Proventil Hfa] 6.7 gm IH TID PRN #1 hfa.aer.ad 11/18/19 Unknown Rx Prednisone [predniSONE 10 mg 10 mg PO .TAPER #1 tab.ds.pk 11/18/19 Unknown Rx (6-Day Pack, 21 Tabs)] Allergies Allergy/AdvReac Type Severity Reaction Status Date / Time iodine Allergy Rash Verified 06/15/18 07:09 ED Review of Systems ROS: Stated complaint: SHORT OF BREATH Other details as noted in HPI Comment: All other systems reviewed and negative ED Past Medical Hx - Past Medical History Previous Medical History?: Yes Hx Asthma: Yes (Bronchitis) Additional medical history: Bronchitis - Surgical History Past Surgical History?: Yes Additional Surgical History: tubal ligation - Social History Smoking Status: Former Smoker - Medications Home Medications: Home Medications Medication Instructions Recorded Confirmed Last Taken Type Ondansetron [Zofran Odt] 4 mg PO Q8HR PRN #10 tab.rapdis 10/11/16 Unknown Rx Albuterol Sulfate [Proair 90 mcg IH Q4-6H PRN #1 aer.pow.ba 09/25/17 Unknown Rx Respiclick] Azithromycin [Zithromax Z-JACKY] 250 mg PO DAILY #6 tablet 09/25/17 Unknown Rx Benzonatate [Tessalon Perle] 100 mg PO TID PRN #30 capsule 09/25/17 Unknown Rx Ibuprofen [Motrin 600 MG tab] 600 mg PO Q8H PRN #30 tablet 09/25/17 Unknown Rx predniSONE [Deltasone] 40 mg PO QDAY #10 tab 09/25/17 Unknown Rx Clindamycin [Clindamycin CAP] 300 mg PO Q8H 10 Days #30 cap 12/14/17 Unknown Rx HYDROcodone/ACETAMINOPHEN [[place] 1 each PO Q6H PRN #12 tablet 12/14/17 Unknown Rx 5-325 Tablet] Ibuprofen [Motrin 600 MG tab] 600 mg PO Q8H PRN #15 tablet 12/14/17 Unknown Rx Promethazine [Phenergan TAB] 25 mg PO Q6HR PRN #12 tab 12/14/17 Unknown Rx ALBUTEROL Inhaler(NF) [VENTOLIN 1 puff IH Q4-6H PRN #1 inha 06/15/18 Unknown Rx Inhaler(NF)] Prednisone [predniSONE 10 mg 10 mg PO .TAPER #1 tab.ds.pk 06/15/18 Unknown Rx (6-Day Pack, 21 Tabs)] Ketorolac [Toradol] 10 mg PO Q6H PRN #12 tablet 07/13/18 Unknown Rx Albuterol Mdi (or & Nicu Only) 2 puff IH QID PRN #1 inhalation 09/04/19 Unknown Rx [ProAir HFA Inhaler] Benzonatate [Tessalon Perles] 100 mg PO Q8HR #10 capsule 09/04/19 Unknown Rx predniSONE [Deltasone] 20 mg PO QDAY #5 tab 09/04/19 Unknown Rx Albuterol Sulfate [Proventil Hfa] 6.7 gm IH TID PRN #1 hfa.aer.ad 11/18/19 Unknown Rx Prednisone [predniSONE 10 mg 10 mg PO .TAPER #1 tab.ds.pk 11/18/19 Unknown Rx (6-Day Pack, 21 Tabs)] ED Physical Exam - General Limitations: No Limitations General appearance: alert, in no apparent distress - Head Head exam: Present: atraumatic, normocephalic - Eye Eye exam: Present: normal appearance - ENT ENT exam: Present: mucous membranes moist - Respiratory Respiratory exam: Present: normal lung sounds bilaterally. Absent: respiratory distress, wheezes, rales, rhonchi, stridor, chest wall tenderness, accessory muscle use, decreased breath sounds, prolonged expiratory - Cardiovascular Cardiovascular Exam: Present: regular rate, normal rhythm, normal heart sounds. Absent: systolic murmur, diastolic murmur, rubs, gallop - Neurological Exam Neurological exam: Present: alert, oriented X3 - Psychiatric Psychiatric exam: Present: normal affect, normal mood - Skin Skin exam: Present: warm, dry, intact ED Course Vital Signs 11/18/19 11/18/19 11/18/19 06:22 06:45 07:03 Temperature 97.6 F Pulse Rate 97 H Pulse Rate [ 72 Bilateral Throughout] Respiratory 20 Rate Respiratory 18 Rate [Bilateral Throughout] Blood Pressure 125/77 Blood Pressure [Left] O2 Sat by Pulse 95 96 Oximetry 11/18/19 08:33 Temperature Pulse Rate 81 Pulse Rate [ Bilateral Throughout] Respiratory 18 Rate Respiratory Rate [Bilateral Throughout] Blood Pressure Blood Pressure 121/74 [Left] O2 Sat by Pulse 98 Oximetry ED Medical Decision Making - Lab Data Vital Signs 11/18/19 11/18/19 11/18/19 06:22 06:45 07:03 Temperature 97.6 F Pulse Rate 97 H Pulse Rate [ 72 Bilateral Throughout] Respiratory 20 Rate Respiratory 18 Rate [Bilateral Throughout] Blood Pressure 125/77 Blood Pressure [Left] O2 Sat by Pulse 95 96 Oximetry 11/18/19 08:33 Temperature Pulse Rate 81 Pulse Rate [ Bilateral Throughout] Respiratory 18 Rate Respiratory Rate [Bilateral Throughout] Blood Pressure Blood Pressure 121/74 [Left] O2 Sat by Pulse 98 Oximetry - Medical Decision Making pt is a 39 yo female who presents to the ED with c/o asthma exacerbation that began this morning. she states that her inhaler broke this morning so she was unable to use her rescue inhaler. she has associated SOB, wheezing, and occasional dry cough. she denies any fever, n/v/d, ear pain, chest congestion, productive cough, sore throat. PMHx asthma. no allergies to meds. LNMP: last week. she has never been intubated for her asthma. she has never had to be admitted for asthma. Vitals are normal. Patient given DuoNeb, Solu-Medrol, magnesium prior to my evaluation. On exam breath sounds are clear bilaterally, no wheezing, no rales, no rhonchi, no stridor, no respiratory distress, no accessory muscle use. Patient states that she feels significantly better and is ready to go home. She has no further wheezing. She does not have any clinical signs of bacterial pneumonia or bronchitis. Patient given prescription for al buterol inhaler and prednisone taper. Advised patient Please use medication as prescribed. Follow-up with your primary care doctor. Return to emergency room for any new or worsening symptoms. - Differential Diagnosis Asthma, reactive airway, URI, pneumonia, bronchitis, viral syndrome Critical care attestation.: If time is entered above; I have spent that time in minutes in the direct care of this critically ill patient, excluding procedure time. ED Disposition Clinical Impression: Asthma exacerbation Qualifiers: Asthma severity: unspecified severity Asthma persistence: unspecified Qualified Code(s): J45.901 - Unspecified asthma with (acute) exacerbation Disposition: TO HOME OR SELFCARE Is pt being admited?: No Does the pt Need Aspirin: No Condition: Stable Instructions: Asthma (ED) Additional Instructions: Please use medication as prescribed. Follow-up with your primary care doctor. Return to emergency room for any new or worsening symptoms. Prescriptions: Prednisone [predniSONE 10 mg (6-Day Pack, 21 Tabs)] 10 mg PO .TAPER #1 tab.ds.pk Albuterol Sulfate [Proventil Hfa] 6.7 gm IH TID PRN #1 hfa.aer.ad PRN Reason: Shortness Of Breath Referrals: NALLELY TROTTER MD [Primary Care Provider] - 2-3 Days MARIA DEL ROSARIO NICHOLSON MD [Staff Physician] - 2-3 Days [facility] [Provider Group] - 2-3 Days Time of Disposition: 07:58 Print Language: MALAY
[2019-11-18 08:34] VITALS: BP 121/74
== END 2019-11-18 08:33 | disposition home or self-care (01) ==
LOC: ED 06:17
DX: J45.901 Unspecified asthma with (acute) exacerbation (principal); Z79.899 Other long term (current) drug therapy; Z87.891 Personal history of nicotine dependence; Z98.51 Tubal ligation status; Z91.041 Radiographic dye allergy status
CPT/HCPCS: 94640; 96365; 96375; 99283; J2930; J3475; 94644

== ENCOUNTER 2019-12-02 03:11 | Emergency (ER) | payer SELFPAY | END 2019-12-02 03:15 | disposition left against medical advice (07) | LOC: ED 03:11 | DX: R06.00 Dyspnea, unspecified (principal); Z53.21 Procedure and treatment not carried out due to patient leaving prior to being seen by health care provider ==

== ENCOUNTER 2019-12-14 02:19 | Emergency (ER) | payer SELFPAY ==
[2019-12-14] MEDS ORDERED: ALBUTEROL 2.5 MG/3 ML NEBU IH ONE ×2 (02:40→02:49)
[2019-12-14] MEDS ORDERED: IPRATROPIUM 0.02% NEBU 2.5 ML IH ONE ×2 (02:40→02:49)
[2019-12-14] MEDS ORDERED: methylPREDNISolone Sod Succinate 125 MG/2 ML INJ IM ONE (02:56)
[2019-12-14] MEDS ORDERED: ACETAMINOPHEN 500 MG TAB PO ONE (02:56)
--- NOTE | 2019-12-14 03:30 | XRay Report ---
CHEST 1 VIEW INDICATION / CLINICAL INFORMATION: dyspnea, asthma. COMPARISON: 09/04/2019 FINDINGS: SUPPORT DEVICES: None. HEART / MEDIASTINUM: No significant abnormality. LUNGS / PLEURA: No significant pulmonary or pleural abnormality. No pneumothorax. ADDITIONAL FINDINGS: No significant additional findings. IMPRESSION: 1. No acute findings. No interval change. Signer Name: Cindy Keene MD Signed: 12/14/2019 3:26 AM Workstation Name: [id number]
--- NOTE | 2019-12-14 03:54 | Emergency Department Report ---
ED Shortness of Breath HPI - General Chief Complaint: Adult Asthma Stated Complaint: COUGH/WALTER Source: patient, family Mode of arrival: Stretcher Limitations: No Limitations - History of Present Illness Initial Comments: Patient is a 39-year-old -[place] female with a history of chronic asthma and bronchitis who presents to the ED with complaint of acute onset persistent shortness of breath, wheezing and dry cough with chest wall pain for the last 12 hours. Patient states that she ran out of her inhaler at home and her symptoms got worse especially around 4 hours ago. Patient denies dizziness, syncope, fever, chills, nasal and sinus congestion, sore throat, abdominal pain, nausea, vomiting, syncope, palpitations, neck pain, diaphoresis or sore throat. MD Complaint: shortness of breath, cough, "asthma attack" -: Sudden, hour(s) (12) Radiation: back Severity: moderate Pain Scale: 5 Quality: dull, aching Consistency: constant Improves With: bronchodilators Worsens With: nothing Known History Of: asthma Context: medication noncompliance, anxiety Associated Symptoms: denies other symptoms, chest pain, cough Treatments Prior to Arrival: none - Related Data Home Oxygen Therapy: No Previous Rx's Medication Instructions Recorded Last Taken Type Ondansetron [Zofran Odt] 4 mg PO Q8HR PRN #10 tab.rapdis 10/11/16 Unknown Rx Albuterol Sulfate [Proair 90 mcg IH Q4-6H PRN #1 aer.pow.ba 09/25/17 Unknown Rx Respiclick] Azithromycin [Zithromax Z-JACKY] 250 mg PO DAILY #6 tablet 09/25/17 Unknown Rx Benzonatate [Tessalon Perle] 100 mg PO TID PRN #30 capsule 09/25/17 Unknown Rx predniSONE [Deltasone] 40 mg PO QDAY #10 tab 09/25/17 Unknown Rx Clindamycin [Clindamycin CAP] 300 mg PO Q8H 10 Days #30 cap 12/14/17 Unknown Rx HYDROcodone/ACETAMINOPHEN [Mutual 1 each PO Q6H PRN #12 tablet 12/14/17 Unknown Rx 5-325 Tablet] Ibuprofen [Motrin 600 MG tab] 600 mg PO Q8H PRN #15 tablet 12/14/17 Unknown Rx Promethazine [Phenergan TAB] 25 mg PO Q6HR PRN #12 tab 12/14/17 Unknown Rx ALBUTEROL Inhaler(NF) [VENTOLIN 1 puff IH Q4-6H PRN #1 inha 06/15/18 Unknown Rx Inhaler(NF)] Ketorolac [Toradol] 10 mg PO Q6H PRN #12 tablet 07/13/18 Unknown Rx Albuterol Mdi (or & Nicu Only) 2 puff IH QID PRN #1 inhalation 09/04/19 Unknown Rx [ProAir HFA Inhaler] predniSONE [Deltasone] 20 mg PO QDAY #5 tab 09/04/19 Unknown Rx Prednisone [predniSONE 10 mg 10 mg PO .TAPER #1 tab.ds.pk 11/18/19 Unknown Rx (6-Day Pack, 21 Tabs)] Albuterol Sulfate [Proventil Hfa] 6.7 gm IH TID PRN #1 hfa.aer.ad 12/14/19 Unknown Rx Benzonatate [Tessalon Perles] 100 mg PO Q8HR #30 capsule 12/14/19 Unknown Rx Ibuprofen [Motrin 600 MG tab] 600 mg PO Q8H PRN #24 tablet 12/14/19 Unknown Rx Prednisone [predniSONE 10 mg 10 mg PO .TAPER 21 Days #1 12/14/19 Unknown Rx (6-Day Pack, 21 Tabs)] tab.ds.pk Allergies Allergy/AdvReac Type Severity Reaction Status Date / Time iodine Allergy Rash Verified 06/15/18 07:09 ED Review of Systems ROS: Stated complaint: COUGH/WALTER Other details as noted in HPI Constitutional: denies: chills, fever Eyes: denies: eye pain, eye discharge, vision change ENT: congestion. denies: ear pain, throat pain Respiratory: cough, shortness of breath, wheezing Cardiovascular: chest pain. denies: palpitations Endocrine: no symptoms reported Gastrointestinal: denies: abdominal pain, nausea, diarrhea Genitourinary: denies: urgency, dysuria, discharge Musculoskeletal: denies: back pain, joint swelling, arthralgia Skin: denies: rash, lesions Neurological: denies: headache, weakness, paresthesias Psychiatric: denies: anxiety, depression Hematological/Lymphatic: denies: easy bleeding, easy bruising ED Past Medical Hx - Past Medical History Previous Medical History?: Yes Hx Asthma: Yes (Bronchitis) Additional medical history: Bronchitis - Surgical History Past Surgical History?: Yes Additional Surgical History: tubal ligation - Social History Smoking Status: Former Smoker Substance Use Type: None - Medications Home Medications: Home Medications Medication Instructions Recorded Confirmed Last Taken Type Ondansetron [Zofran Odt] 4 mg PO Q8HR PRN #10 tab.rapdis 10/11/16 Unknown Rx Albuterol Sulfate [Proair 90 mcg IH Q4-6H PRN #1 aer.pow.ba 09/25/17 Unknown Rx Respiclick] Azithromycin [Zithromax Z-JACKY] 250 mg PO DAILY #6 tablet 09/25/17 Unknown Rx Benzonatate [Tessalon Perle] 100 mg PO TID PRN #30 capsule 09/25/17 Unknown Rx predniSONE [Deltasone] 40 mg PO QDAY #10 tab 09/25/17 Unknown Rx Clindamycin [Clindamycin CAP] 300 mg PO Q8H 10 Days #30 cap 12/14/17 Unknown Rx HYDROcodone/ACETAMINOPHEN [Mutual 1 each PO Q6H PRN #12 tablet 12/14/17 Unknown Rx 5-325 Tablet] Ibuprofen [Motrin 600 MG tab] 600 mg PO Q8H PRN #15 tablet 12/14/17 Unknown Rx Promethazine [Phenergan TAB] 25 mg PO Q6HR PRN #12 tab 12/14/17 Unknown Rx ALBUTEROL Inhaler(NF) [VENTOLIN 1 puff IH Q4-6H PRN #1 inha 06/15/18 Unknown Rx Inhaler(NF)] Ketorolac [Toradol] 10 mg PO Q6H PRN #12 tablet 07/13/18 Unknown Rx Albuterol Mdi (or & Nicu Only) 2 puff IH QID PRN #1 inhalation 09/04/19 Unknown Rx [ProAir HFA Inhaler] predniSONE [Deltasone] 20 mg PO QDAY #5 tab 09/04/19 Unknown Rx Prednisone [predniSONE 10 mg 10 mg PO .TAPER #1 tab.ds.pk 11/18/19 Unknown Rx (6-Day Pack, 21 Tabs)] Albuterol Sulfate [Proventil Hfa] 6.7 gm IH TID PRN #1 hfa.aer.ad 12/14/19 Unknown Rx Benzonatate [Tessalon Perles] 100 mg PO Q8HR #30 capsule 12/14/19 Unknown Rx Ibuprofen [Motrin 600 MG tab] 600 mg PO Q8H PRN #24 tablet 12/14/19 Unknown Rx Prednisone [predniSONE 10 mg 10 mg PO .TAPER 21 Days #1 12/14/19 Unknown Rx (6-Day Pack, 21 Tabs)] tab.ds.pk ED Physical Exam - General Limitations: No Limitations General appearance: alert, in no apparent distress - Head Head exam: Present: atraumatic, normocephalic, normal inspection - Eye Eye exam: Present: normal appearance, PERRL, EOMI Pupils: Present: normal accommodation - ENT ENT exam: Present: normal exam, normal orophraynx, mucous membranes moist, TM's normal bilaterally, normal external ear exam - Neck Neck exam: Present: normal inspection, full ROM - Respiratory Respiratory exam: Present: wheezes (Moderately diffuse coarse wheezes throughout). Absent: respiratory distress, rales, rhonchi, stridor, chest wall tenderness, accessory muscle use, prolonged expiratory - Cardiovascular Cardiovascular Exam: Present: normal rhythm, tachycardia, normal heart sounds. Absent: systolic murmur, diastolic murmur, rubs, gallop - GI/Abdominal GI/Abdominal exam: Present: soft, normal bowel sounds. Absent: tenderness, guarding, rebound, hyperactive bowel sounds, hypoactive bowel sounds - Extremities Exam Extremities exam: Present: normal inspection, full ROM, normal capillary refill - Back Exam Back exam: Present: normal inspection, full ROM. Absent: tenderness, CVA tenderness (R), CVA tenderness (L), muscle spasm, paraspinal tenderness - Neurological Exam Neurological exam: Present: alert, oriented X3, CN II-XII intact, normal gait, reflexes normal - Psychiatric Psychiatric exam: Present: normal affect, normal mood - Skin Skin exam: Present: warm, dry, intact, normal color. Absent: rash ED Course Vital Signs 12/14/19 12/14/19 12/14/19 02:23 02:51 04:05 Temperature 98.3 F Pulse Rate 115 H 81 Pulse Rate [ 122 H Bilateral Throughout] Respiratory 18 16 Rate Respiratory 20 Rate [Bilateral Throughout] Blood Pressure 109/68 Blood Pressure 111/62 [Right] O2 Sat by Pulse 96 100 Oximetry ED Medical Decision Making - Radiology Data Radiology results: report reviewed, image reviewed Findings [facility] [address] [place] [address] XRay Report Signed Patient: RICH SNELL MR#: [id number] : 1980 Acct:[id number] Age/Sex: 39 / F ADM Date: 12/14/19 Loc: ED Attending Dr: Ordering Physician: GLORIA BECK Date of Service: 12/14/19 Procedure(s): XR chest 1V ap Accession Number(s): [id number] cc: GLORIA BECK Fluoro Time In Minutes: CHEST 1 VIEW INDICATION / CLINICAL INFORMATION: dyspnea, asthma. COMPARISON: 09/04/2019 FINDINGS: SUPPORT DEVICES: None. HEART / MEDIASTINUM: No significant abnormality. LUNGS / PLEURA: No significant pulmonary or pleural abnormality. No pneumothorax. ADDITIONAL FINDINGS: No significant additional findings. IMPRESSION: 1. No acute findings. No interval change. Signer Name: Cindy Keene MD Signed: 12/14/2019 3:26 AM Workstation Name: [id number] Transcribed By: Dictated By: Cindy Keene MD Electronically Authenticated By: Cindy Keene MD Signed Date/Time: 12/14/19325 DD/ 4 TD/TT: - Medical Decision Making This is a 39-year-old -[place] female with a history of chronic asthma and bronchitis who presents to the ED with complaint of acute onset persistent shortness of breath, wheezing and dry cough with chest wall pain for the last 12 hours. Patient states that she ran out of her inhaler at home and her symptoms got worse especially around 4 hours ago. In the ED, patient is alert and oriented x3 and is not in distress but tachycardic, anxious and afebrile. Patient received nebulizer treatment in the ED and also given steroids. Chest x-ray shows no acute cardiopulmonary abnormalities or pneumonitis. On reevaluation, patient tachycardia improved significantly patient felt better with oxygen saturation in the normal range 96 to 98% in room air. Patient was discharged home on medications occluding a refill of bronchodilators albuterol inhaler. Patient was advised to follow-up with her primary care physician in 5 to 7 days for reevaluation or return to the ED immediately if symptoms get worse. - Differential Diagnosis Asthma; bronchitis; anxiety; URI Critical care attestation.: If time is entered above; I have spent that time in minutes in the direct care of this critically ill patient, excluding procedure time. ED Disposition Clinical Impression: Shortness of breath, Acute bronchitis with asthma with acute exacerbation Acute asthma exacerbation Qualifiers: Asthma severity: mild Asthma persistence: intermittent Qualified Code(s): J45.21 - Mild intermittent asthma with (acute) exacerbation Disposition: TO HOME OR SELFCARE Is pt being admited?: No Does the pt Need Aspirin: No Condition: Stable Instructions: Shortness of Breath, Adult, [id number], Cough, Adult, [id number], Acute Bronchitis, Adult, [id number], Asthma, Adult, [id number], Acute Bronchitis (ED) Additional Instructions: Chest x-ray shows no acute cardiopulmonary abnormalities or pneumonitis. They will take medications with food, drink plenty of fluids and follow-up with your primary care physician in 7 to 10 days for reevaluation. Return to the ED immediately if symptoms get worse. Prescriptions: Ibuprofen [Motrin 600 MG tab] 600 mg PO Q8H PRN #24 tablet PRN Reason: Pain Prednisone [predniSONE 10 mg (6-Day Pack, 21 Tabs)] 10 mg PO .TAPER 21 Days #1 tab.ds.pk Albuterol Sulfate [Proventil Hfa] 6.7 gm IH TID PRN #1 hfa.aer.ad PRN Reason: Shortness Of Breath Benzonatate [Tessalon Perles] 100 mg PO Q8HR #30 capsule Referrals: [facility] [Provider Group] - 3-5 Days Time of Disposition: 03:54 Print Language: WOLOF
[2019-12-14 04:07] VITALS: BP 111/62
== END 2019-12-14 04:15 | disposition home or self-care (01) ==
LOC: ED 02:19
DX: J45.901 Unspecified asthma with (acute) exacerbation (principal); R06.02 Shortness of breath; Z79.899 Other long term (current) drug therapy; Z91.041 Radiographic dye allergy status; Z87.891 Personal history of nicotine dependence; Z98.51 Tubal ligation status
CPT/HCPCS: 71045; 94640; 96372; 99284; J2930; 94644

== ENCOUNTER 2019-12-14 08:24 | Observation (INO) | payer OTHER, SELFPAY ==
[2019-12-14] MEDS ORDERED: SODIUM CHLORIDE 0.9% 500 ML 500 ML IV ONE (10:24)
[2019-12-14] MEDS ORDERED: IPRATROPIUM 0.02% NEBU 2.5 ML IH ONE (10:25)
[2019-12-14] MEDS ORDERED: ALBUTEROL 2.5 MG/3 ML NEBU IH ONE ×3 (10:25→18:30)
[2019-12-14] MEDS ORDERED: dexAMETHasone 20 MG/5 ML VIAL IV ONE (10:25)
--- NOTE | 2019-12-14 11:56 | XRay Report ---
CHEST 1 VIEW 12/14/2019 11:16 AM INDICATION / CLINICAL INFORMATION: resp distress. COMPARISON: 12/14/2019, O2 57 hours FINDINGS: SUPPORT DEVICES: None. HEART / MEDIASTINUM: No significant abnormality. LUNGS / PLEURA: No significant pulmonary or pleural abnormality. No pneumothorax. ADDITIONAL FINDINGS: No significant additional findings. IMPRESSION: 1. No significant change. Signer Name: David Landers MD Signed: 12/14/2019 11:51 AM Workstation Name: [id number]
[2019-12-14] MEDS ORDERED: diphenhydrAMINE 50 MG/ML VIAL ONE (12:25)
[2019-12-14] MEDS: cefTRIAXone/NS 2 GM/100 ML 2 GM/100 ML BAG IV SCH (12:25)
[2019-12-14 13:28] LABS: Alanine Aminotransferase 8 units/L (7-56); Albumin 4.2 g/dL (3.9-5); BUN/Creatinine Ratio 13; Blood Urea Nitrogen 10 mg/dL (7-17); Calcium 9.7 mg/dL (8.4-10.2); Hemolysis Index 50
[2019-12-14] MEDS ORDERED: SODIUM CHLORIDE 0.9% 1000 ML 1,000 ML IV ONE ×3 (13:28→16:18)
[2019-12-14 13:32] LABS: Hematocrit 40.9 % (30.3-42.9); Hemoglobin 13.4 gm/dl (10.1-14.3); Mean Corpuscular HGB Conc 33 % (30-34); Mean Corpuscular Volume 97 fl (79-97); Platelet Count 183 K/mm3 (140-440); Red Blood Count 4.21 M/mm3 (3.65-5.03); Red Cell Distribution Width 12.9 % (13.2-15.2)
[2019-12-14 13:47] LABS: C-Reactive Protein 1.6 mg/dL (0.00-1.30)
[2019-12-14] MEDS ORDERED: diphenhydrAMINE 50 MG/ML VIAL IV ONE (13:53)
[2019-12-14 14:09] LABS: Basophils % (Manual) 0 % (0.0-1.8); Monocytes % (Manual) 0 % (0.0-7.3); Total Cells Counted 100
[2019-12-14 14:10] LABS: Eosinophils % (Manual) 0 % (0.0-4.3); Platelet Estimate Consistent w Auto; RBC Morphology Normal
--- NOTE | 2019-12-14 15:05 | Emergency Department Report ---
ED Shortness of Breath HPI - General Chief Complaint: Upper Respiratory Infection Stated Complaint: WALTER Time Seen by Provider: 12/14/19 10:23 Source: patient Mode of arrival: Ambulatory Limitations: No Limitations - History of Present Illness Initial Comments: Patient is a 39-year-old F Romanian female with a past medical history of asthma who was actually seen late last night for asthma exacerbation. Patient was discharged and her O2 sat was within normal limits who never left the emergency department decided to start back in because she was not feeling well. Patient was refusing to put on a mask and when her oxygen level was checked it was 78. Patient is had a cough congestion for the last several days. Patient also complaining of some abdominal cramps and diarrhea as well. - Related Data Previous Rx's Medication Instructions Recorded Last Taken Type Ondansetron [Zofran Odt] 4 mg PO Q8HR PRN #10 tab.rapdis 10/11/16 Unknown Rx Albuterol Sulfate [Proair 90 mcg IH Q4-6H PRN #1 aer.pow.ba 09/25/17 Unknown Rx Respiclick] Azithromycin [Zithromax Z-JACKY] 250 mg PO DAILY #6 tablet 09/25/17 Unknown Rx Benzonatate [Tessalon Perle] 100 mg PO TID PRN #30 capsule 09/25/17 Unknown Rx predniSONE [Deltasone] 40 mg PO QDAY #10 tab 09/25/17 Unknown Rx Clindamycin [Clindamycin CAP] 300 mg PO Q8H 10 Days #30 cap 12/14/17 Unknown Rx HYDROcodone/ACETAMINOPHEN [[place] 1 each PO Q6H PRN #12 tablet 12/14/17 Unknown Rx 5-325 Tablet] Ibuprofen [Motrin 600 MG tab] 600 mg PO Q8H PRN #15 tablet 12/14/17 Unknown Rx Promethazine [Phenergan TAB] 25 mg PO Q6HR PRN #12 tab 12/14/17 Unknown Rx ALBUTEROL Inhaler(NF) [VENTOLIN 1 puff IH Q4-6H PRN #1 inha 06/15/18 Unknown Rx Inhaler(NF)] Ketorolac [Toradol] 10 mg PO Q6H PRN #12 tablet 07/13/18 Unknown Rx Albuterol Mdi (or & Nicu Only) 2 puff IH QID PRN #1 inhalation 09/04/19 Unknown Rx [ProAir HFA Inhaler] predniSONE [Deltasone] 20 mg PO QDAY #5 tab 09/04/19 Unknown Rx Prednisone [predniSONE 10 mg 10 mg PO .TAPER #1 tab.ds.pk 11/18/19 Unknown Rx (6-Day Pack, 21 Tabs)] Albuterol Sulfate [Proventil Hfa] 6.7 gm IH TID PRN #1 hfa.aer.ad 12/14/19 Unknown Rx Benzonatate [Tessalon Perles] 100 mg PO Q8HR #30 capsule 12/14/19 Unknown Rx Ibuprofen [Motrin 600 MG tab] 600 mg PO Q8H PRN #24 tablet 12/14/19 Unknown Rx Prednisone [predniSONE 10 mg 10 mg PO .TAPER 21 Days #1 12/14/19 Unknown Rx (6-Day Pack, 21 Tabs)] tab.ds.pk Allergies Allergy/AdvReac Type Severity Reaction Status Date / Time iodine Allergy Rash Verified 06/15/18 07:09 ED Review of Systems ROS: Stated complaint: WALTER Other details as noted in HPI Comment: All other systems reviewed and negative ED Past Medical Hx - Past Medical History Hx Asthma: Yes (Bronchitis) Additional medical history: Bronchitis - Surgical History Additional Surgical History: tubal ligation - Social History Smoking Status: Unknown if ever smoked - Medications Home Medications: Home Medications Medication Instructions Recorded Confirmed Last Taken Type Ondansetron [Zofran Odt] 4 mg PO Q8HR PRN #10 tab.rapdis 10/11/16 Unknown Rx Albuterol Sulfate [Proair 90 mcg IH Q4-6H PRN #1 aer.pow.ba 09/25/17 Unknown Rx Respiclick] Azithromycin [Zithromax Z-JACKY] 250 mg PO DAILY #6 tablet 09/25/17 Unknown Rx Benzonatate [Tessalon Perle] 100 mg PO TID PRN #30 capsule 09/25/17 Unknown Rx predniSONE [Deltasone] 40 mg PO QDAY #10 tab 09/25/17 Unknown Rx Clindamycin [Clindamycin CAP] 300 mg PO Q8H 10 Days #30 cap 12/14/17 Unknown Rx HYDROcodone/ACETAMINOPHEN [[place] 1 each PO Q6H PRN #12 tablet 12/14/17 Unknown Rx 5-325 Tablet] Ibuprofen [Motrin 600 MG tab] 600 mg PO Q8H PRN #15 tablet 12/14/17 Unknown Rx Promethazine [Phenergan TAB] 25 mg PO Q6HR PRN #12 tab 12/14/17 Unknown Rx ALBUTEROL Inhaler(NF) [VENTOLIN 1 puff IH Q4-6H PRN #1 inha 06/15/18 Unknown Rx Inhaler(NF)] Ketorolac [Toradol] 10 mg PO Q6H PRN #12 tablet 07/13/18 Unknown Rx Albuterol Mdi (or & Nicu Only) 2 puff IH QID PRN #1 inhalation 09/04/19 Unknown Rx [ProAir HFA Inhaler] predniSONE [Deltasone] 20 mg PO QDAY #5 tab 09/04/19 Unknown Rx Prednisone [predniSONE 10 mg 10 mg PO .TAPER #1 tab.ds.pk 11/18/19 Unknown Rx (6-Day Pack, 21 Tabs)] Albuterol Sulfate [Proventil Hfa] 6.7 gm IH TID PRN #1 hfa.aer.ad 12/14/19 Unknown Rx Benzonatate [Tessalon Perles] 100 mg PO Q8HR #30 capsule 12/14/19 Unknown Rx Ibuprofen [Motrin 600 MG tab] 600 mg PO Q8H PRN #24 tablet 12/14/19 Unknown Rx Prednisone [predniSONE 10 mg 10 mg PO .TAPER 21 Days #1 12/14/19 Unknown Rx (6-Day Pack, 21 Tabs)] tab.ds.pk ED Physical Exam - General Limitations: No Limitations General appearance: alert, in distress - Head Head exam: Present: atraumatic, normocephalic - Eye Eye exam: Present: normal appearance, PERRL, EOMI - ENT ENT exam: Present: mucous membranes moist - Neck Neck exam: Present: normal inspection - Respiratory Respiratory exam: Present: respiratory distress, wheezes. Absent: normal lung sounds bilaterally, rales, rhonchi - Cardiovascular Cardiovascular Exam: Present: normal rhythm, tachycardia. Absent: systolic murmur, diastolic murmur, rubs, gallop - GI/Abdominal GI/Abdominal exam: Present: soft, normal bowel sounds. Absent: distended, tenderness, guarding - Extremities Exam Extremities exam: Present: normal inspection - Back Exam Back exam: Present: normal inspection - Neurological Exam Neurological exam: Present: alert, oriented X3 - Psychiatric Psychiatric exam: Present: normal affect, normal mood - Skin Skin exam: Present: warm, dry, intact, normal color. Absent: rash ED Course Vital Signs 12/14/19 12/14/19 12/14/19 10:30 10:40 10:45 Temperature Pulse Rate 115 H 90 Pulse Rate [ 98 H Anterior] Pulse Rate [ 88 Posterior] Respiratory 28 H 28 H Rate Respiratory 32 H Rate [Anterior] Respiratory 24 Rate [Posterior ] Blood Pressure 144/88 136/79 O2 Sat by Pulse 78 L Oximetry 12/14/19 12/14/19 12/14/19 11:00 11:15 11:30 Temperature Pulse Rate 88 104 H 126 H Pulse Rate [ Anterior] Pulse Rate [ Posterior] Respiratory 24 31 H 25 H Rate Respiratory Rate [Anterior] Respiratory Rate [Posterior ] Blood Pressure 122/60 117/69 120/61 O2 Sat by Pulse 95 100 100 Oximetry 12/14/19 12/14/19 12/14/19 11:46 12:00 12:16 Temperature 98.6 F Pulse Rate 126 H 130 H 118 H Pulse Rate [ Anterior] Pulse Rate [ Posterior] Respiratory 25 H 29 H 35 H Rate Respiratory Rate [Anterior] Respiratory Rate [Posterior ] Blood Pressure 120/61 108/63 123/72 O2 Sat by Pulse 99 99 100 Oximetry 12/14/19 12/14/19 12/14/19 12:30 13:00 13:16 Temperature Pulse Rate 127 H 111 H 110 H Pulse Rate [ Anterior] Pulse Rate [ Posterior] Respiratory 46 H 30 H 24 Rate Respiratory Rate [Anterior] Respiratory Rate [Posterior ] Blood Pressure 123/72 112/62 112/62 O2 Sat by Pulse 100 100 100 Oximetry 12/14/19 13:30 Temperature Pulse Rate 110 H Pulse Rate [ Anterior] Pulse Rate [ Posterior] Respiratory 27 H Rate Respiratory Rate [Anterior] Respiratory Rate [Posterior ] Blood Pressure 112/62 O2 Sat by Pulse 100 Oximetry ED Medical Decision Making - Lab Data Result diagrams: 12/14/19 10:24 12/14/19 10:30 Lab Results 12/14/19 12/14/19 12/14/19 Range/Units 10:24 10:24 10:24 WBC 10.4 (4.5-11.0) K/mm3 RBC 4.21 (3.65-5.03) M/mm3 Hgb 13.4 (10.1-14.3) gm/dl Hct 40.9 (30.3-42.9) % MCV 97 (79-97) fl MCH 32 (28-32) pg MCHC 33 (30-34) % RDW 12.9 L (13.2-15.2) % Plt Count 183 (140-440) K/mm3 Add Manual Diff Complete Total Counted 100 Seg Neutrophils % Hazardous Waste Remover Seg Neuts % (Manual) 98.0 H (40.0-70.0) % Band Neutrophils % 0 % Lymphocytes % (Manual) 2.0 L (13.4-35.0) % Reactive Lymphs % (Man) 0 % Monocytes % (Manual) 0 (0.0-7.3) % Eosinophils % (Manual) 0 (0.0-4.3) % Basophils % (Manual) 0 (0.0-1.8) % Metamyelocytes % 0 % Myelocytes % 0 % Promyelocytes % 0 % Blast Cells % 0 % Nucleated RBC % Not Reportable Seg Neutrophils # Man 10.2 H (1.8-7.7) K/mm3 Band Neutrophils # 0.0 K/mm3 Lymphocytes # (Manual) 0.2 L (1.2-5.4) K/mm3 Abs React Lymphs (Man) 0.0 K/mm3 Monocytes # (Manual) 0.0 (0.0-0.8) K/mm3 Eosinophils # (Manual) 0.0 (0.0-0.4) K/mm3 Basophils # (Manual) 0.0 (0.0-0.1) K/mm3 Metamyelocytes # 0.0 K/mm3 Myelocytes # 0.0 K/mm3 Promyelocytes # 0.0 K/mm3 Blast Cells # 0.0 K/mm3 WBC Morphology Not Reportable TNR Hypersegmented Neuts Not Reportable Hyposegmented Neuts Not Reportable Hypogranular Neuts Not Reportable Smudge Cells Not Reportable Toxic Granulation Not Reportable Toxic Vacuolation Not Reportable Dohle Bodies Not Reportable Pelger-Huet Anomaly Not Reportable Charisse Rods Not Reportable Platelet Estimate Consistent w auto Clumped Platelets Not Reportable Plt Clumps, EDTA Not Reportable Large Platelets Not Reportable Giant Platelets Not Reportable Platelet Satelliting Not Reportable Plt Morphology Comment Not Reportable RBC Morphology Normal Dimorphic RBCs Not Reportable Polychromasia Not Reportable Hypochromasia Not Reportable Poikilocytosis Not Reportable Anisocytosis Not Reportable Microcytosis Not Reportable Macrocytosis Not Reportable Spherocytes Not Reportable Pappenheimer Bodies Not Reportable Sickle Cells Not Reportable Target Cells Not Reportable Tear Drop Cells Not Reportable Ovalocytes Not Reportable Helmet Cells Not Reportable [place] Bodies Not Reportable [place] Rings Not Reportable Sandgap Cells Not Reportable Bite Cells Not Reportable Crenated Cell Not Reportable Elliptocytes Not Reportable Acanthocytes (Spur) Not Reportable Rouleaux Not Reportable Hemoglobin C Crystals Not Reportable Schistocytes Not Reportable Malaria parasites Not Reportable [place] Bodies Not Reportable Hem Pathologist Commnt No D-Dimer (0-234) ng/mlDDU Sodium 135 L (137-145) mmol/L Potassium 3.7 (3.6-5.0) mmol/L Chloride 96.7 L (98-107) mmol/L Carbon Dioxide 19 L (22-30) mmol/L Anion Gap 23 mmol/L BUN 10 (7-17) mg/dL Creatinine 0.8 (0.6-1.2) mg/dL Estimated GFR > 60 ml/min BUN/Creatinine Ratio 13 % Glucose 201 H (65-100) mg/dL Lactic Acid (0.7-2.0) mmol/L Calcium 9.7 (8.4-10.2) mg/dL Ferritin (10.0-200.0) ng/mL Total Bilirubin 0.30 (0.1-1.2) mg/dL AST 19 (5-40) units/L ALT 8 (7-56) units/L Alkaline Phosphatase 69 (35-129) units/L Lactate Dehydrogenase (91-180) units/L C-Reactive Protein (0.00-1.30) mg/dL Total Protein 7.1 (6.3-8.2) g/dL Albumin 4.2 (3.9-5) g/dL Albumin/Globulin Ratio 1.4 % Procalcitonin (<0.15) ng/mL 12/14/19 12/14/19 12/14/19 Range/Units 10:30 10:30 10:30 WBC (4.5-11.0) K/mm3 RBC (3.65-5.03) M/mm3 Hgb (10.1-14.3) gm/dl Hct (30.3-42.9) % MCV (79-97) fl MCH (28-32) pg MCHC (30-34) % RDW (13.2-15.2) % Plt Count (140-440) K/mm3 Add Manual Diff Total Counted Seg Neutrophils % Seg Neuts % (Manual) (40.0-70.0) % Band Neutrophils % % Lymphocytes % (Manual) (13.4-35.0) % Reactive Lymphs % (Man) % Monocytes % (Manual) (0.0-7.3) % Eosinophils % (Manual) (0.0-4.3) % Basophils % (Manual) (0.0-1.8) % Metamyelocytes % % Myelocytes % % Promyelocytes % % Blast Cells % % Nucleated RBC % Seg Neutrophils # Man (1.8-7.7) K/mm3 Band Neutrophils # K/mm3 Lymphocytes # (Manual) (1.2-5.4) K/mm3 Abs React Lymphs (Man) K/mm3 Monocytes # (Manual) (0.0-0.8) K/mm3 Eosinophils # (Manual) (0.0-0.4) K/mm3 Basophils # (Manual) (0.0-0.1) K/mm3 Metamyelocytes # K/mm3 Myelocytes # K/mm3 Promyelocytes # K/mm3 Blast Cells # K/mm3 WBC Morphology Hypersegmented Neuts Hyposegmented Neuts Hypogranular Neuts Smudge Cells Toxic Granulation Toxic Vacuolation Dohle Bodies Pelger-Huet Anomaly Charisse Rods Platelet Estimate Clumped Platelets Plt Clumps, EDTA Large Platelets Giant Platelets Platelet Satelliting Plt Morphology Comment RBC Morphology Dimorphic RBCs Polychromasia Hypochromasia Poikilocytosis Anisocytosis Microcytosis Macrocytosis Spherocytes Pappenheimer Bodies Sickle Cells Target Cells Tear Drop Cells Ovalocytes Helmet Cells [place] Bodies [place] Rings Sandgap Cells Bite Cells Crenated Cell Elliptocytes Acanthocytes (Spur) Rouleaux Hemoglobin C Crystals Schistocytes Malaria parasites [place] Bodies Hem Pathologist Commnt D-Dimer < 135.00 (0-234) ng/mlDDU Sodium (137-145) mmol/L Potassium (3.6-5.0) mmol/L Chloride (98-107) mmol/L Carbon Dioxide (22-30) mmol/L Anion Gap mmol/L BUN (7-17) mg/dL Creatinine (0.6-1.2) mg/dL Estimated GFR ml/min BUN/Creatinine Ratio % Glucose 203 H (65-100) mg/dL Lactic Acid (0.7-2.0) mmol/L Calcium (8.4-10.2) mg/dL Ferritin 105.4 (10.0-200.0) ng/mL Total Bilirubin (0.1-1.2) mg/dL AST (5-40) units/L ALT (7-56) units/L Alkaline Phosphatase (35-129) units/L Lactate Dehydrogenase 219 H (91-180) units/L C-Reactive Protein 1.60 H (0.00-1.30) mg/dL Total Protein (6.3-8.2) g/dL Albumin (3.9-5) g/dL Albumin/Globulin Ratio % Procalcitonin (<0.15) ng/mL 12/14/19 12/14/19 Range/Units 10:30 12:27 WBC (4.5-11.0) K/mm3 RBC (3.65-5.03) M/mm3 Hgb (10.1-14.3) gm/dl Hct (30.3-42.9) % MCV (79-97) fl MCH (28-32) pg MCHC (30-34) % RDW (13.2-15.2) % Plt Count (140-440) K/mm3 Add Manual Diff Total Counted Seg Neutrophils % Seg Neuts % (Manual) (40.0-70.0) % Band Neutrophils % % Lymphocytes % (Manual) (13.4-35.0) % Reactive Lymphs % (Man) % Monocytes % (Manual) (0.0-7.3) % Eosinophils % (Manual) (0.0-4.3) % Basophils % (Manual) (0.0-1.8) % Metamyelocytes % % Myelocytes % % Promyelocytes % % Blast Cells % % Nucleated RBC % Seg Neutrophils # Man (1.8-7.7) K/mm3 Band Neutrophils # K/mm3 Lymphocytes # (Manual) (1.2-5.4) K/mm3 Abs React Lymphs (Man) K/mm3 Monocytes # (Manual) (0.0-0.8) K/mm3 Eosinophils # (Manual) (0.0-0.4) K/mm3 Basophils # (Manual) (0.0-0.1) K/mm3 Metamyelocytes # K/mm3 Myelocytes # K/mm3 Promyelocytes # K/mm3 Blast Cells # K/mm3 WBC Morphology Hypersegmented Neuts Hyposegmented Neuts Hypogranular Neuts Smudge Cells Toxic Granulation Toxic Vacuolation Dohle Bodies Pelger-Huet Anomaly Charisse Rods Platelet Estimate Clumped Platelets Plt Clumps, EDTA Large Platelets Giant Platelets Platelet Satelliting Plt Morphology Comment RBC Morphology Dimorphic RBCs Polychromasia Hypochromasia Poikilocytosis Anisocytosis Microcytosis Macrocytosis Spherocytes Pappenheimer Bodies Sickle Cells Target Cells Tear Drop Cells Ovalocytes Helmet Cells [place] Bodies [place] Rings Sandra Cells Bite Cells Crenated Cell Elliptocytes Acanthocytes (Spur) Rouleaux Hemoglobin C Crystals Schistocytes Malaria parasites [place] Bodies Hem Pathologist Commnt D-Dimer (0-234) ng/mlDDU Sodium (137-145) mmol/L Potassium (3.6-5.0) mmol/L Chloride (98-107) mmol/L Carbon Dioxide (22-30) mmol/L Anion Gap mmol/L BUN (7-17) mg/dL Creatinine (0.6-1.2) mg/dL Estimated GFR ml/min BUN/Creatinine Ratio % Glucose (65-100) mg/dL Lactic Acid 7.70 H* (0.7-2.0) mmol/L Calcium (8.4-10.2) mg/dL Ferritin (10.0-200.0) ng/mL Total Bilirubin (0.1-1.2) mg/dL AST (5-40) units/L ALT (7-56) units/L Alkaline Phosphatase (35-129) units/L Lactate Dehydrogenase (91-180) units/L C-Reactive Protein (0.00-1.30) mg/dL Total Protein (6.3-8.2) g/dL Albumin (3.9-5) g/dL Albumin/Globulin Ratio % Procalcitonin < 0.05 (<0.15) ng/mL - Radiology Data Findings [facility] [address] [place] [address] XRay Report Signed Patient: RICH SNELL MR#: [id number] : 1980 Acct:[id number] Age/Sex: 39 / F ADM Date: 12/14/19 Loc: ED Attending Dr: Ordering Physician: RENEE CABALLERO MD Date of Service: 12/14/19 Procedure(s): XR chest 1V ap Accession Number(s): [id number] cc: RENEE CABALLERO MD Fluoro Time In Minutes: CHEST 1 VIEW 12/14/2019 11:16 AM INDICATION / CLINICAL INFORMATION: resp distress. COMPARISON: 12/14/2019, O2 57 hours FINDINGS: SUPPORT DEVICES: None. HEART / MEDIASTINUM: No significant abnormality. LUNGS / PLEURA: No significant pulmonary or pleural abnormality. No pneumothorax. ADDITIONAL FINDINGS: No significant additional findings. IMPRESSION: 1. No significant change. Signer Name: David Landers MD Signed: 12/14/2019 11:51 AM Workstation Name: [email or web address] - Medical Decision Making Received hour-long neb treatment was still wheezing. She did respond well to being on oxygen. Patient be admitted for further evaluation. Patient likely has COVID-19 Critical Care Time: Yes (30) Critical care attestation.: If time is entered above; I have spent that time in minutes in the direct care of this critically ill patient, excluding procedure time. ED Disposition Clinical Impression: Shortness of breath, Hypoxemia, Suspected COVID-19 virus infection Acute asthma exacerbation Qualifiers: Asthma severity: moderate Asthma persistence: persistent Qualified Code(s): J45.41 - Moderate persistent asthma with (acute) exacerbation Sepsis Qualifiers: Sepsis type: sepsis due to unspecified organism Sepsis acute organ dysfunction status: unspecified Qualified Code(s): A41.9 - Sepsis, unspecified organism Disposition: 09 OP ADMIT IP TO THIS HOSP Is pt being admited?: Yes Does the pt Need Aspirin: No Condition: Stable Referrals: PRIMARY CARE, [Primary Care Provider] - 3-5 Days Time of Disposition: 15:11
--- NOTE | 2019-12-14 17:05 | History and Physical Report ---
History of Present Illness Date of examination: 12/14/19 Date of admission: 12/14/19 16:20 Chief complaint: SOB, diarrhea History of present illness: Patient is a 39-year-old F Hungarian female with a past medical history of asthma who was actually seen late last night for asthma exacerbation. Patient was discharged and her O2 sat was within normal limits who never left the emergency department decided to start back in because she was not feeling well. Patient was refusing to put on a mask and when her oxygen level was checked it was 78. Patient is had a cough congestion for the last several days. Patient also complaining of some abdominal cramps and diarrhea as well. Past Medical Hx - Past Medical History Hx Asthma: Yes (Bronchitis) Additional medical history: Bronchitis - Surgical History Additional Surgical History: tubal ligation -Family history - Social History Smoking Status: Unknown if ever smoked Review of System: Constitutional: no fever, no chills, no weight loss Ears, eyes, nose, mouth and throat: no nasal congestion, no nasal discharge, no sinus pressure, no vision change, no red eye. Neck: No neck pain or rigidity. Cardiovascular: No chest pain, no orthopnea, no palpitations, no leg swelling Respiratory: + shortness of breath, + cough, no congestion, no wheezing Gastrointestinal: no abdominal pain, no nausea, no vomiting. + Diarrhea Genitourinary : no dysuria, no hematuria Musculoskeletal: no joint swelling or muscle ache Integumentary: no rash, no pruritis Neurological: no parathesias, no numbness, no tingling Endocrine: no cold or heat intolerance, no polyuria or polydipsia Hematologic/Lymphatic: no easy bruising, no easy bleeding, no gland swelling Allergic/Immunologic: no urticaria, no angioedema. Medications and Allergies Allergies Allergy/AdvReac Type Severity Reaction Status Date / Time iodine Allergy Rash Verified 06/15/18 07:09 Home Medications Medication Instructions Recorded Confirmed Last Taken Type Ondansetron [Zofran Odt] 4 mg PO Q8HR PRN #10 tab.rapdis 10/11/16 Unknown Rx Albuterol Sulfate [Proair 90 mcg IH Q4-6H PRN #1 aer.pow.ba 09/25/17 Unknown Rx Respiclick] Azithromycin [Zithromax Z-JACKY] 250 mg PO DAILY #6 tablet 09/25/17 Unknown Rx Benzonatate [Tessalon Perle] 100 mg PO TID PRN #30 capsule 09/25/17 Unknown Rx predniSONE [Deltasone] 40 mg PO QDAY #10 tab 09/25/17 Unknown Rx Clindamycin [Clindamycin CAP] 300 mg PO Q8H 10 Days #30 cap 12/14/17 Unknown Rx HYDROcodone/ACETAMINOPHEN [[place] 1 each PO Q6H PRN #12 tablet 12/14/17 Unknown Rx 5-325 Tablet] Ibuprofen [Motrin 600 MG tab] 600 mg PO Q8H PRN #15 tablet 12/14/17 Unknown Rx Promethazine [Phenergan TAB] 25 mg PO Q6HR PRN #12 tab 12/14/17 Unknown Rx ALBUTEROL Inhaler(NF) [VENTOLIN 1 puff IH Q4-6H PRN #1 inha 06/15/18 Unknown Rx Inhaler(NF)] Ketorolac [Toradol] 10 mg PO Q6H PRN #12 tablet 07/13/18 Unknown Rx Albuterol Mdi (or & Nicu Only) 2 puff IH QID PRN #1 inhalation 09/04/19 Unknown Rx [ProAir HFA Inhaler] predniSONE [Deltasone] 20 mg PO QDAY #5 tab 09/04/19 Unknown Rx Prednisone [predniSONE 10 mg 10 mg PO .TAPER #1 tab.ds.pk 11/18/19 Unknown Rx (6-Day Pack, 21 Tabs)] Albuterol Sulfate [Proventil Hfa] 6.7 gm IH TID PRN #1 hfa.aer.ad 12/14/19 Unknown Rx Benzonatate [Tessalon Perles] 100 mg PO Q8HR #30 capsule 12/14/19 Unknown Rx Ibuprofen [Motrin 600 MG tab] 600 mg PO Q8H PRN #24 tablet 12/14/19 Unknown Rx Prednisone [predniSONE 10 mg 10 mg PO .TAPER 21 Days #1 12/14/19 Unknown Rx (6-Day Pack, 21 Tabs)] tab.ds.pk Active Meds: Active Medications Albuterol/Ipratropium (Duoneb *Not For Prn Use*) 1 ampul IH Q6HRT CATIA Ceftriaxone Sodium (Rocephin/Ns 2 Gm/100 Ml) 2 gm in 100 mls @ 200 mls/hr IV Q24HR CATIA; Protocol Last Admin: 12/14/19 12:25 Dose: 200 mls/hr Documented by: Sodium Chloride (Nacl 0.9% 1000 Ml) 1,000 mls @ 999 mls/hr IV BOLUS ONE Stop: 12/14/19 17:18 Methylprednisolone Sodium Succinate (Solu-Medrol) 40 mg IV Q12HR [facility] Exam - Physical Exam Narrative exam: GENERAL: well-developed and well-nourished lying on bed appeared to be in no discomfort. HEENT: Normocephalic. Atraumatic. No conjunctival congestion or icterus. Patient has moist mucous membranes. NECK: Supple. Trachea midline. CHEST/LUNGS: Clear to auscultated bilaterally, breathing nonlabored. No wheezes crackles or rhonchi. HEART/CARDIOVASCULAR: Regular in rate and rhythm. S1 and S2 positive. ABDOMEN: Abdomen is soft, nontender. Patient has normal bowel sounds. SKIN: There is no rash. Warm and dry. NEURO: No focal motor deficit. Follows command. MUSCULOSKELETAL: No joint effusion or tenderness. EXTRIMITY: No edema, no cyanosis or clubbing. PSYCH: Cooperative. - Constitutional Vitals: Temp Pulse Resp BP Pulse Ox 98.6 F 119 H 22 91/55 100 12/14/19 12:00 12/14/19 16:30 12/14/19 16:30 12/14/19 16:30 12/14/19 16:30 Results - Labs CBC & Chem 7: 12/14/19 10:24 12/14/19 10:30 Labs: Abnormal lab results 12/14/19 12/14/19 12/14/19 Range/Units 10:24 10:24 10:30 RDW 12.9 L (13.2-15.2) % Seg Neuts % (Manual) 98.0 H (40.0-70.0) % Lymphocytes % (Manual) 2.0 L (13.4-35.0) % Seg Neutrophils # Man 10.2 H (1.8-7.7) K/mm3 Lymphocytes # (Manual) 0.2 L (1.2-5.4) K/mm3 Sodium 135 L (137-145) mmol/L Chloride 96.7 L (98-107) mmol/L Carbon Dioxide 19 L (22-30) mmol/L Glucose 201 H 203 H (65-100) mg/dL Lactic Acid (0.7-2.0) mmol/L Lactate Dehydrogenase 219 H (91-180) units/L C-Reactive Protein 1.60 H (0.00-1.30) mg/dL 12/14/19 12/14/19 Range/Units 12:27 15:05 RDW (13.2-15.2) % Seg Neuts % (Manual) (40.0-70.0) % Lymphocytes % (Manual) (13.4-35.0) % Seg Neutrophils # Man (1.8-7.7) K/mm3 Lymphocytes # (Manual) (1.2-5.4) K/mm3 Sodium (137-145) mmol/L Chloride (98-107) mmol/L Carbon Dioxide (22-30) mmol/L Glucose (65-100) mg/dL Lactic Acid 7.70 H* 4.30 H* (0.7-2.0) mmol/L Lactate Dehydrogenase (91-180) units/L C-Reactive Protein (0.00-1.30) mg/dL Assessment and Plan Acute hypoxic respiratory failure -Likely due to acute asthma exacerbation -We will schedule for nebulizer breathing treatment, IV steroid -We will also rule out COVID-19 COVID-19 PUI, follow inflammatory markers, ordered for Covid test -CXR: No significant findings. Acute asthma exacerbation - Will provide scheduled nebulizer breathing treatment and as needed - Place on empiric steroid and antibiotics - will get sputum culture, will rule out Covid, chest x-ray was unremarkable - Provide supplemental oxygen to keep oxygen saturation above 92% - Consider to consult pulmonary if no improvement in next 24 hours SIRS, presented with elevated lactic acid, tachycardia tachypnea and shortness of breath -We will do sputum culture, patient is afebrile -Likely from acute asthma exacerbation, will continue to monitor -We will place on empiric antibiotics for now Elevated lactic acid, likely due to source versus dehydration -Continue antibiotics, start on IV fluid Mild hyponatremia, likely due to dehydration, placed on IV fluid, monitor BMP Diarrhea, will send stool for white count and culture DVT prophylaxis - Lovenox
[2019-12-14] MEDS ORDERED: HYDROmorphone 1 MG/1 ML INJ IV ONE (20:45)
[2019-12-14] MEDS ORDERED: HYDROmorphone 1 MG/1 ML INJ ONE (20:47)
[2019-12-14] MEDS: IPRATROPIUM/ALBUTEROL SULFATE 3 ML AMPUL.NEB IH SCH (21:18)
[2019-12-14] MEDS: methylPREDNISolone Sod Succinate 40 MG/1 ML INJ IV SCH (22:00)
[2019-12-14] MEDS ORDERED: methylPREDNISolone Sod Succinate 40 MG/1 ML INJ IV SCH (22:00)
[2019-12-14] MEDS: metroNIDAZOLE 500 MG TAB PO SCH (22:00)
[2019-12-14] MEDS: SODIUM CHLORIDE 0.9% 1000 ML 1,000 ML IV SCH (23:00)
[2019-12-15] MEDS: IPRATROPIUM/ALBUTEROL SULFATE 3 ML AMPUL.NEB IH SCH ×3 (01:52→13:38)
[2019-12-15 05:36] LABS: BUN/Creatinine Ratio 18; Blood Urea Nitrogen 11 mg/dL (7-17); Calcium 9.2 mg/dL (8.4-10.2); Hemolysis Index 1
[2019-12-15] MEDS: metroNIDAZOLE 500 MG TAB PO SCH ×2 (05:58→14:24)
[2019-12-15] MEDS: methylPREDNISolone Sod Succinate 40 MG/1 ML INJ IV SCH ×2 (05:58→14:24)
[2019-12-15] MEDS: cefTRIAXone/NS 2 GM/100 ML 2 GM/100 ML BAG IV SCH (09:52)
--- NOTE | 2019-12-15 11:36 | Discharge Summary ---
Providers - Providers Date of Admission: 12/14/19 16:20 Attending physician: ELVIN ESCAMILLA Primary care physician: NALLELY TROTTER MD Hospitalization Condition: Stable Exam - Constitutional Vitals: Temp Pulse Resp BP Pulse Ox 98.3 F 100 H 18 118/46 98 12/15/19 05:57 12/15/19 07:10 12/15/19 07:10 12/15/19 05:57 12/15/19 07:15 Plan Follow up with: NALLELY TROTTER MD [Primary Care Provider] - 3-5 Days
[2019-12-15] MEDS: SODIUM CHLORIDE 0.9% 1000 ML 1,000 ML IV SCH (14:24)
[2019-12-15 16:32] VITALS: BP 109/59
== END 2019-12-15 18:03 | disposition home or self-care (01) ==
LOC: ED 08:24 → 3A 16:20
PROVIDERS: ADMIT Internal Medicine; ATTEND Internal Medicine
DX: J96.01 Acute respiratory failure with hypoxia (principal); Z20.828 Contact with and (suspected) exposure to other viral communicable diseases; A41.9 Sepsis, unspecified organism; J45.901 Unspecified asthma with (acute) exacerbation; R74.02 Elevation of levels of lactic acid dehydrogenase [LDH]; E87.1 Hypo-osmolality and hyponatremia; E86.0 Dehydration; Z98.51 Tubal ligation status
CPT/HCPCS: 36415; 71045; 80048; 80053; 82140; 82728; 82947; 83615; 84145; 85025; 85379; 86140; 87040; 87205; 94640; 94760; 96361; 96365; 96366; 96375; 96376; 99291; G0378; J0696; J1100; J1170; J1200; J2920; J7030; J7040; U0003; 85007; 94644

== ENCOUNTER 2020-06-10 07:50 | Emergency (ER) | payer OTHER ==
[2020-06-10] MEDS ORDERED: IPRATROPIUM/ALBUTEROL SULFATE 3 ML AMPUL.NEB IH ONE ×2 (07:58→08:13)
--- NOTE | 2020-06-10 07:58 | Event Note ---
ED Screening Note ED Screening Note: WHEEZING BILATERAL COUGH ASTHMA HX THC DIFFICULTY COMPLETING H/P This initial assessment/diagnostic orders/clinical plan/treatment(s) is/are subject to change based on patients health status, clinical progression and re- assessment by fellow clinical providers in the ED. Further treatment and workup at subsequent clinical providers discretion. Patient/guardian urged not to elope from the ED as their condition may be serious if not clinically assessed and managed. Initial orders include: NEBS XRAY
[2020-06-10] MEDS ORDERED: methylPREDNISolone Sod Succinate 125 MG/2 ML INJ IV ONE (08:13)
[2020-06-10] MEDS ORDERED: MAGNESIUM SULFATE 2 GM/50 ML BAG IV ONE (08:13)
[2020-06-10] MEDS ORDERED: SODIUM CHLORIDE 0.9% 1000 ML 1,000 ML IV ONE (08:14)
[2020-06-10 09:23] LABS: Basophils % (Auto) 0.3 % (0.0-1.8); Eosinophils # (Auto) 0.6 K/mm3 (0.0-0.4); Eosinophils % (Auto) 5.6 % (0.0-4.3); Hematocrit 40.1 % (30.3-42.9); Hemoglobin 13.3 gm/dl (10.1-14.3); Lymphocytes # (Auto) 3.2 K/mm3 (1.2-5.4); Lymphocytes % (Auto) 30.2 % (13.4-35.0); Mean Corpuscular HGB Conc 33 % (30-34); Mean Corpuscular Volume 97 fl (79-97); Monocytes # (Auto) 0.9 K/mm3 (0.0-0.8); Platelet Count 209 K/mm3 (140-440); Red Blood Count 4.14 M/mm3 (3.65-5.03); Red Cell Distribution Width 13.3 % (13.2-15.2)
--- NOTE | 2020-06-10 09:31 | XRay Report ---
XR chest 1V ap INDICATION / CLINICAL INFORMATION: SOB. COMPARISON: 12/14/2019. FINDINGS: SUPPORT DEVICES: None. HEART /PULMONARY VASCULATURE: No significant abnormality. LUNGS / PLEURA: No significant pulmonary or pleural abnormality. No pneumothorax. ADDITIONAL FINDINGS: No significant additional findings. IMPRESSION: 1. No acute findings. Signer Name: Arvin Paul MD Signed: 06/10/2020 9:26 AM Workstation Name: [id number]
[2020-06-10 09:40] LABS: BUN/Creatinine Ratio 16; Blood Urea Nitrogen 13 mg/dL (7-17); Calcium 9.4 mg/dL (8.4-10.2); Hemolysis Index 6
--- NOTE | 2020-06-10 10:39 | Emergency Department Report ---
Minor Respiratory - HPI Chief Complaint: Adult Asthma Stated Complaint: ASTHMA ATTACK Time Seen by Provider: 06/10/20 07:57 ED Review of Systems ROS: Stated complaint: ASTHMA ATTACK Other details as noted in HPI Comment: All other systems reviewed and negative ED Past Medical Hx - Past Medical History Previous Medical History?: Yes Hx Hypertension: No Hx Congestive Heart Failure: No Hx Diabetes: Yes (Grand mother) Hx Asthma: Yes (Bronchitis) Hx COPD: No Additional medical history: Bronchitis - Surgical History Past Surgical History?: Yes Additional Surgical History: tubal ligation - Family History Family history: no significant - Social History Smoking Status: Former Smoker Substance Use Type: Marijuana - Medications Home Medications: Home Medications Medication Instructions Recorded Confirmed Last Taken Type Nebulizer and Compressor [[place] 1 each MC TID PRN #1 each 12/15/19 Unknown Rx Choice Nebulizer] Albuterol Sulfate [Albuterol 0.63% 0.63 mg IH TID PRN #1 box 06/10/20 Unknown Rx NEBS] Albuterol Sulfate [Proair 90 mcg IH QID PRN #1 aer.pow.ba 06/10/20 Unknown Rx Respiclick] Cetirizine HCl [ZyrTEC] 10 mg PO DAILY #30 capsule 06/10/20 Unknown Rx Ipratropium [Atrovent NEB] 0.5 mg IH Q8HRT #1 box 06/10/20 Unknown Rx predniSONE [Deltasone] 20 mg PO DAILY #5 tablet 06/10/20 Unknown Rx Minor Respiratory Exam - Exam General: Vital signs noted. No distress. Alert and acting appropriately. HEENT: Yes Moist Mucous Membranes, No Pharyngeal Erythema, No Pharyngeal Exudates, No Rhinorrhea, No Conjuctival Injection, No Frontal Tenderness, No Maxillary Tenderness Ear: Neither TM Bulge, Neither TM Erythema, Neither EAC Pain, Neither EAC Discharge Neck: Yes Supple, No Adenopathy Lungs: Yes Good Air Exchange, Yes Wheezes, No Ronchi, No Stridor, No Cough, No Labored Respirations, No Retractions, No Use of Accessory Muscles, No Other Abnormal Lung Sounds Heart: Yes Regular, No Murmur Abdomen: Yes Normal Bowel Sounds, No Tenderness, No Peritoneal Signs Skin: No Rash, No Edema Neurologic: Alert and oriented, no deficits. Musculoskeletal: Unremarkable. ED Course Vital Signs 06/10/20 06/10/20 08:10 08:30 Pulse Rate [ 70 Anterior Bilateral Throughout] Respiratory 24 Rate Respiratory 20 Rate [Anterior Bilateral Throughout] O2 Sat by Pulse 100 Oximetry ED Medical Decision Making - Lab Data Result diagrams: 06/10/20 08:48 06/10/20 08:48 - Radiology Data Radiology results: report reviewed, image reviewed no consolidation or infiltrate - Medical Decision Making Labs 06/10/20 06/10/20 08:48 08:48 WBC 10.6 RBC 4.14 Hgb 13.3 Hct 40.1 MCV 97 MCH 32 MCHC 33 RDW 13.3 Plt Count 209 Lymph % (Auto) 30.2 [place] % (Auto) 8.0 H Eos % (Auto) 5.6 H Baso % (Auto) 0.3 Lymph # (Auto) 3.2 [place] # (Auto) 0.9 H Eos # (Auto) 0.6 H Baso # (Auto) 0.0 Seg Neutrophils % 55.9 Seg Neutrophils # 5.9 Sodium 142 Potassium 4.7 Chloride 104.9 Carbon Dioxide 27 Anion Gap 15 BUN 13 Creatinine 0.8 Estimated GFR > 60 BUN/Creatinine Ratio 16 Glucose 106 H Calcium 9.4 Vital Signs 06/10/20 06/10/20 08:10 08:30 Pulse Rate [ 70 Anterior Bilateral Throughout] Respiratory 24 Rate Respiratory 20 Rate [Anterior Bilateral Throughout] O2 Sat by Pulse 100 Oximetry To main- RT treatment, steroids, NS and Mg On reexam 1040 lung bilateral with dec wheezing; loosened cough; reports feeling better Xr chest noted without consolidation or infiltrate labs noted VS remain stable peak flow/ambulation and repeat VS ordered- then dispo. Pt educated on THC use and compliance with meds- only on her inhaler at this time. - Differential Diagnosis ro covid/pna/uri/asthma ae Critical care attestation.: If time is entered above; I have spent that time in minutes in the direct care of this critically ill patient, excluding procedure time. ED Disposition Clinical Impression: Acute asthma exacerbation Disposition: -01 TO HOME OR SELFCARE Is pt being admited?: No Does the pt Need Aspirin: No Condition: Stable Instructions: Asthma, Adult Additional Instructions: avoid marijuana and drugs take your meds as ordered stay well hydrated follow up with pcp for ongoing care you should follow up next week referral below Referrals: PRIMARY CAREMD [Primary Care Provider] - 3-5 Days MARIA DEL ROSARIO NICHOLSON MD [Staff Physician] - 3-5 Days Forms: Work/School Release Form(ED) Time of Disposition: 10:39
--- NOTE | 2020-06-10 11:34 | Emergency Department Report ---
ED General Adult HPI - General Chief complaint: Adult Asthma Stated complaint: ASTHMA ATTACK Time Seen by Provider: 06/10/20 07:57 Source: patient Mode of arrival: Ambulatory Limitations: No Limitations - History of Present Illness Initial comments: This is a 40-year-old female who states that she is out of all her asthma medicine to include medicine for her nebulizer. She states that perhaps her last visit to an ER was 4 months ago. She has never been intubated. She complains of a cough with yellow sputum but no fever. She denies chest pain. She has been wheezing today. She has no other complaints. She was found to have significant wheezing on arrival but no hypoxia. -: Gradual, hour(s) Improves with: none Worsens with: none Associated Symptoms: denies other symptoms, cough Treatments Prior to Arrival: none - Related Data Previous Rx's Medication Instructions Recorded Last Taken Type Nebulizer and Compressor [[place] 1 each MC TID PRN #1 each 12/15/19 Unknown Rx Choice Nebulizer] Albuterol Sulfate [Albuterol 0.63% 0.63 mg IH TID PRN #1 box 06/10/20 Unknown Rx NEBS] Albuterol Sulfate [Proair 90 mcg IH QID PRN #1 aer.pow.ba 06/10/20 Unknown Rx Respiclick] Azithromycin [Zithromax Z-JACKY] 250 mg PO DAILY #1 pack 06/10/20 Unknown Rx Ipratropium [Atrovent NEB] 0.5 mg IH Q8HRT #1 box 06/10/20 Unknown Rx predniSONE [Deltasone] 40 mg PO QDAY #10 tab 06/10/20 Unknown Rx Allergies Allergy/AdvReac Type Severity Reaction Status Date / Time iodine Allergy Rash Verified 06/10/20 07:55 shellfish derived AdvReac Rash Verified 06/10/20 07:55 ED Review of Systems ROS: Stated complaint: ASTHMA ATTACK Other details as noted in HPI Constitutional: denies: chills, fever Eyes: denies: eye pain, vision change ENT: denies: ear pain, throat pain Respiratory: see HPI, cough, wheezing Cardiovascular: denies: chest pain, palpitations Endocrine: no symptoms reported Gastrointestinal: denies: abdominal pain, nausea, diarrhea Genitourinary: denies: urgency, dysuria Musculoskeletal: denies: back pain, arthralgia Skin: denies: rash, lesions Neurological: denies: headache, weakness Psychiatric: denies: anxiety, depression Hematological/Lymphatic: denies: easy bleeding, easy bruising ED Past Medical Hx - Past Medical History Previous Medical History?: Yes Hx Hypertension: No Hx Congestive Heart Failure: No Hx Diabetes: Yes (Grand mother) Hx Asthma: Yes (Bronchitis) Hx COPD: No Additional medical history: Bronchitis - Surgical History Past Surgical History?: Yes Additional Surgical History: tubal ligation - Social History Smoking Status: Former Smoker Substance Use Type: Marijuana - Medications Home Medications: Home Medications Medication Instructions Recorded Confirmed Last Taken Type Nebulizer and Compressor [[place] 1 each MC TID PRN #1 each 12/15/19 Unknown Rx Choice Nebulizer] Albuterol Sulfate [Albuterol 0.63% 0.63 mg IH TID PRN #1 box 06/10/20 Unknown Rx NEBS] Albuterol Sulfate [Proair 90 mcg IH QID PRN #1 aer.pow.ba 06/10/20 Unknown Rx Respiclick] Azithromycin [Zithromax Z-JACKY] 250 mg PO DAILY #1 pack 06/10/20 Unknown Rx Ipratropium [Atrovent NEB] 0.5 mg IH Q8HRT #1 box 06/10/20 Unknown Rx predniSONE [Deltasone] 40 mg PO QDAY #10 tab 06/10/20 Unknown Rx ED Physical Exam - General Limitations: No Limitations General appearance: alert, in no apparent distress - Head Head exam: Present: atraumatic, normocephalic - Eye Eye exam: Present: normal appearance. Absent: scleral icterus - ENT ENT exam: Present: mucous membranes moist - Neck Neck exam: Present: normal inspection - Respiratory Respiratory exam: Present: wheezes (Bilaterally). Absent: respiratory distress, accessory muscle use, decreased breath sounds - Cardiovascular Cardiovascular Exam: Present: regular rate, normal rhythm. Absent: systolic murmur, diastolic murmur, rubs, gallop - GI/Abdominal GI/Abdominal exam: Present: soft, normal bowel sounds. Absent: distended, tenderness, guarding, rebound - Extremities Exam Extremities exam: Present: normal inspection. Absent: calf tenderness - Back Exam Back exam: Present: normal inspection - Neurological Exam Neurological exam: Present: alert, oriented X3, CN II-XII intact. Absent: motor sensory deficit - Psychiatric Psychiatric exam: Present: normal affect, normal mood - Skin Skin exam: Present: warm, dry, intact, normal color. Absent: rash ED Course Vital Signs 06/10/20 06/10/20 08:10 08:30 Pulse Rate [ 70 Anterior Bilateral Throughout] Respiratory 24 Rate Respiratory 20 Rate [Anterior Bilateral Throughout] O2 Sat by Pulse 100 Oximetry - Reevaluation(s) Reevaluation #1: Patient was given magnesium, Solu-Medrol and 2 DuoNeb's. She responded extreme ly well to that. She was ambulated and found to have a pulse oximetry of 100%. She stated she was ready for discharge. Her chest x-ray did not show any evidence of pneumonia. 06/10/20 11:33 ED Medical Decision Making - Lab Data Result diagrams: 06/10/20 08:48 06/10/20 08:48 Laboratory Results - last 24 hr 06/10/20 06/10/20 08:48 08:48 WBC 10.6 RBC 4.14 Hgb 13.3 Hct 40.1 MCV 97 MCH 32 MCHC 33 RDW 13.3 Plt Count 209 Lymph % (Auto) 30.2 [place] % (Auto) 8.0 H Eos % (Auto) 5.6 H Baso % (Auto) 0.3 Lymph # (Auto) 3.2 [place] # (Auto) 0.9 H Eos # (Auto) 0.6 H Baso # (Auto) 0.0 Seg Neutrophils % 55.9 Seg Neutrophils # 5.9 Sodium 142 Potassium 4.7 Chloride 104.9 Carbon Dioxide 27 Anion Gap 15 BUN 13 Creatinine 0.8 Estimated GFR > 60 BUN/Creatinine Ratio 16 Glucose 106 H Calcium 9.4 - Radiology Data Radiology results: report reviewed (No acute process), image reviewed Critical care attestation.: If time is entered above; I have spent that time in minutes in the direct care of this critically ill patient, excluding procedure time. ED Disposition Clinical Impression: Exacerbation of asthma Qualifiers: Asthma severity: moderate Asthma persistence: unspecified Qualified Code(s): J45.901 - Unspecified asthma with (acute) exacerbation Acute bronchitis Qualifiers: Bronchitis organism: unspecified organism Qualified Code(s): J20.9 - Acute bronchitis, unspecified Disposition: DC-01 TO HOME OR SELFCARE Is pt being admited?: No Does the pt Need Aspirin: No Condition: Stable Instructions: Asthma, Adult, Acute Bronchitis (ED), Acute Bronchitis, Adult, [id number] Additional Instructions: avoid marijuana and drugs take your meds as ordered stay well hydrated follow up with pcp for ongoing care you should follow up next week referral below Return any acute change or problem. Follow-up with the [facility] or local primary care. Rx as directed. Prescriptions: Albuterol Sulfate [Albuterol 0.63% NEBS] 0.63 mg IH TID PRN #1 box PRN Reason: Wheezing Ipratropium [Atrovent NEB] 0.5 mg IH Q8HRT #1 box predniSONE [Deltasone] 40 mg PO QDAY #10 tab Albuterol Sulfate [Proair Respiclick] 90 mcg IH QID PRN #1 aer.pow.ba PRN Reason: Wheezing Azithromycin [Zithromax Z-JACKY] 250 mg PO DAILY #1 pack Referrals: MARIA DEL ROSARIO NICHOLSON MD [Staff Physician] - 3-5 Days [facility], [Primary Care Provider] - 3-5 Days [facility] [Provider Group] - 3-5 Days Forms: Work/School Release Form(ED)
[2020-06-10 11:56] VITALS: BP 100/68
== END 2020-06-10 11:59 | disposition home or self-care (01) ==
LOC: ED 07:50
DX: J45.901 Unspecified asthma with (acute) exacerbation (principal); E11.9 Type 2 diabetes mellitus without complications; F17.200 Nicotine dependence, unspecified, uncomplicated; F12.10 Cannabis abuse, uncomplicated; Z79.899 Other long term (current) drug therapy; Z98.51 Tubal ligation status; Z88.8 Allergy status to other drugs, medicaments and biological substances; Z91.013 Allergy to seafood
CPT/HCPCS: 36415; 71045; 80048; 85025; 94640; 96365; 96375; 99284; J2930; J3475; J7030; 94644

== ENCOUNTER 2020-08-09 06:22 | Inpatient (IN) | payer SELFPAY ==
[2020-08-09] MEDS ORDERED: IPRATROPIUM 0.02% NEBU 2.5 ML IH ONE (06:35)
[2020-08-09] MEDS ORDERED: ALBUTEROL 2.5 MG/3 ML NEBU IH ONE (06:35)
[2020-08-09] MEDS ORDERED: SODIUM CHLORIDE 0.9% 1000 ML 1,000 ML IV ONE (06:36)
[2020-08-09] MEDS ORDERED: MAGNESIUM SULFATE 2 GM/50 ML BAG IV ONE (06:36)
--- NOTE | 2020-08-09 06:39 | Emergency Department Report ---
HPI - General Chief Complaint: Dyspnea/Respdistress Time Seen by Provider: 08/09/20 06:35 - HPI HPI: This is a 40-year-old -[place] female presents to the emergency department via EMS from home with a complaint of shortness of breath, coughing and wheezing that has been getting progressively worse since last night around 6 PM. The patient has some remote history of asthma and bronchitis. She is a former smoker. She will occasionally smoke marijuana. She did not take anything for her symptoms at home prior to presentation. Patient was found to have a room air oxygen saturation of about 80% by EMS. She was given 125 mg of Solu-Medrol and 5 mg of albuterol. Patient denies any fever, chest pain, lower extremity swelling, back pain, nausea, vomiting or diaphoresis. No recent travel or sick contacts at home. She is not vaccinated against COVID-19, but no known positive COVID-19 contacts. ED Past Medical Hx - Past Medical History Hx Hypertension: No Hx Congestive Heart Failure: No Hx Diabetes: Yes (Grand mother) Hx Asthma: Yes (Bronchitis) Hx COPD: No Additional medical history: Bronchitis - Surgical History Additional Surgical History: tubal ligation - Social History Smoking Status: Former Smoker Substance Use Type: Marijuana - Medications Home Medications: Home Medications Medication Instructions Recorded Confirmed Last Taken Type Nebulizer and Compressor [[place] 1 each MC TID PRN #1 each 12/15/19 Unknown Rx Choice Nebulizer] Albuterol Sulfate [Albuterol 0.63% 0.63 mg IH TID PRN #1 box 06/10/20 Unknown Rx NEBS] Albuterol Sulfate [Proair 90 mcg IH QID PRN #1 aer.pow.ba 06/10/20 Unknown Rx Respiclick] Azithromycin [Zithromax Z-JACKY] 250 mg PO DAILY #1 pack 06/10/20 Unknown Rx Ipratropium [Atrovent NEB] 0.5 mg IH Q8HRT #1 box 06/10/20 Unknown Rx predniSONE [Deltasone] 40 mg PO QDAY #10 tab 06/10/20 Unknown Rx ED Review of Systems ROS: Stated complaint: WALTER Other details as noted in HPI Comment: All other systems reviewed and negative Constitutional: denies: chills, fever Eyes: denies: eye pain, vision change ENT: denies: ear pain, throat pain Respiratory: cough, shortness of breath, wheezing Cardiovascular: denies: chest pain, palpitations Gastrointestinal: denies: abdominal pain, vomiting Genitourinary: denies: dysuria, discharge Musculoskeletal: denies: back pain, arthralgia Skin: denies: rash, lesions Neurological: denies: headache, weakness Physical Exam - Physical Exam Vital Signs: Vital Signs 08/09/20 06:30 Temperature 98 F Pulse Rate 105 H Respiratory 32 H Rate Blood Pressure 113/66 [Left] O2 Sat by Pulse 100 Oximetry Physical Exam: GENERAL: The patient is well-developed well-nourished. HENT: Normocephalic. Atraumatic. Patient has moist mucous membranes. EYES: Extraocular motions are intact. Pupils equal reactive to light bilaterally. NECK: Supple. Trachea is midline. CHEST/LUNGS: Moderate wheezing throughout the chest. There is some tachypnea but no accessory muscle use. HEART/CARDIOVASCULAR: Regular. There is mild tachycardia. There is no murmur. ABDOMEN: Abdomen is soft, nontender. Patient has normal bowel sounds. There is no abdominal distention. SKIN: Skin is warm and dry. NEURO: The patient is awake, alert, and oriented. The patient is cooperative. The patient has no focal neurologic deficits. Normal speech. MUSCULOSKELETAL: There is no tenderness or deformity. There is no limitation range of motion. ED Course Vital Signs 08/09/20 06:30 Temperature 98 F Pulse Rate 105 H Respiratory 32 H Rate Blood Pressure 113/66 [Left] O2 Sat by Pulse 100 Oximetry ED Medical Decision Making - Lab Data Result diagrams: 08/09/20 06:59 08/09/20 06:59 Lab Results 08/09/20 08/09/20 Range/Units 06:59 06:59 WBC 12.7 H (4.5-11.0) K/mm3 RBC 3.93 (3.65-5.03) M/mm3 Hgb 13.0 (10.1-14.3) gm/dl Hct 37.9 (30.3-42.9) % MCV 96 (79-97) fl MCH 33 H (28-32) pg MCHC 34 (30-34) % RDW 13.0 L (13.2-15.2) % Plt Count 201 (140-440) K/mm3 Lymph % (Auto) 4.5 L (13.4-35.0) % [place] % (Auto) 6.1 (0.0-7.3) % Eos % (Auto) 2.0 (0.0-4.3) % Baso % (Auto) 0.2 (0.0-1.8) % Lymph # (Auto) 0.6 L (1.2-5.4) K/mm3 [place] # (Auto) 0.8 (0.0-0.8) K/mm3 Eos # (Auto) 0.3 (0.0-0.4) K/mm3 Baso # (Auto) 0.0 (0.0-0.1) K/mm3 Seg Neutrophils % 87.2 H (40.0-70.0) % Seg Neutrophils # 11.0 H (1.8-7.7) K/mm3 Sodium 138 (137-145) mmol/L Potassium 5.0 (3.6-5.0) mmol/L Chloride 98.8 (98-107) mmol/L Carbon Dioxide 28 (22-30) mmol/L Anion Gap 16 mmol/L BUN 12 (7-17) mg/dL Creatinine 0.7 (0.6-1.2) mg/dL Estimated GFR > 60 ml/min BUN/Creatinine Ratio 17 % Glucose 156 H (65-100) mg/dL Calcium 10.3 H (8.4-10.2) mg/dL - Radiology Data Radiology results: image reviewed interpreted by me: Chest x-ray does not show any acute process. There are no pleural effusions, obvious pneumonia and there is no pneumothorax. No widened mediastinum. - Medical Decision Making This patient presents to the emergency department with shortness of breath, wheezing and a mixed dry and productive cough. On examination she has moderate bronchospasm. There is tachypnea but no accessory muscle use. Patient got Solu-Medrol in route. I gave her a continuous breathing treatment as well as some magnesium and IV fluid. Upon reevaluation initially the patient appears improved. However while testing her ambulation with pulse ox patient went down to 85% and had increased work of breathing. Decision was made to admit the patient and was accepted by the hospitalist, Dr. Ruiz. Labs have been mostly unremarkable including CBC and metabolic panel. Chest x-r ay did not show any pneumonia, pleural effusions, pneumothorax, widened mediastinum, or any other acute process. Critical Care Time: No Critical care attestation.: If time is entered above; I have spent that time in minutes in the direct care of this critically ill patient, excluding procedure time. ED Disposition Clinical Impression: Shortness of breath, Hypoxia Acute asthma exacerbation Qualifiers: Asthma severity: unspecified severity Asthma persistence: unspecified Qualified Code(s): J45.901 - Unspecified asthma with (acute) exacerbation Disposition: 09 OP ADMIT IP TO THIS HOSP Is pt being admited?: Yes Condition: Fair Time of Disposition: 09:47
[2020-08-09 07:33] LABS: Basophils % (Auto) 0.2 % (0.0-1.8); Eosinophils # (Auto) 0.3 K/mm3 (0.0-0.4); Hematocrit 37.9 % (30.3-42.9); Lymphocytes # (Auto) 0.6 K/mm3 (1.2-5.4); Lymphocytes % (Auto) 4.5 % (13.4-35.0); Mean Corpuscular HGB Conc 34 % (30-34); Mean Corpuscular Volume 96 fl (79-97); Monocytes # (Auto) 0.8 K/mm3 (0.0-0.8); Monocytes % (Auto) 6.1 % (0.0-7.3); Platelet Count 201 K/mm3 (140-440); Red Blood Count 3.93 M/mm3 (3.65-5.03)
[2020-08-09 07:45] LABS: Blood Urea Nitrogen 12 mg/dL (7-17); Calcium 10.3 mg/dL (8.4-10.2); Hemolysis Index 5
[2020-08-09 07:53] LABS: BUN/Creatinine Ratio 17
--- NOTE | 2020-08-09 11:31 | History and Physical Report ---
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 Patient was last admitted to the hospital in December 2019, no history of intubation, does not have home oxygen She quit smoking many years ago , history of occasional marijuana use. When EMS arrived they found her O2 sats on room air was about 80%, patient received albuterol inhalation and 1 dose of high-dose Solu-Medrol, improved significantly with nasal cannula oxygen. No exposure to [place], not vaccinated. When I evaluated the patient patient is slightly better. In mild distress On 2 L nasal cannula oxygen, Denies headache dizziness, denies chest pain or palpitation No nausea vomiting or abdominal pain, No urinary symptoms Past History Past Medical History: other (Bronchial asthma). denies: diabetes, hypertension Past Surgical History: Other (Tubal ligation) Social history: smoking (Quit smoking many years ago), other (Occasional marijuana use) Family history: no significant family history Medications and Allergies Allergies Allergy/AdvReac Type Severity Reaction Status Date / Time iodine Allergy Rash Verified 08/09/20 07:57 shellfish derived AdvReac Rash Verified 08/09/20 07:57 Home Medications Medication Instructions Recorded Confirmed Last Taken Type Nebulizer and Compressor [[place] 1 each MC TID PRN #1 each 12/15/19 Unknown Rx Choice Nebulizer] Albuterol Sulfate [Albuterol 0.63% 0.63 mg IH TID PRN #1 box 06/10/20 Unknown Rx NEBS] Albuterol Sulfate [Proair 90 mcg IH QID PRN #1 aer.pow.ba 06/10/20 Unknown Rx Respiclick] Azithromycin [Zithromax Z-JACKY] 250 mg PO DAILY #1 pack 06/10/20 Unknown Rx Ipratropium [Atrovent NEB] 0.5 mg IH Q8HRT #1 box 06/10/20 Unknown Rx predniSONE [Deltasone] 40 mg PO QDAY #10 tab 06/10/20 Unknown Rx Active Meds: Active Medications Sodium Chloride (Nacl 0.9% 1000 Ml) 1,000 mls @ 125 mls/hr IV ONCE ONE Stop: 08/09/20 14:35 Last Admin: 08/09/20 06:55 Dose: 125 mls/hr Documented by: Review of Systems Constitutional: weakness, no weight loss, no weight gain, no fever, no chills Ears, nose, mouth and throat: no nasal congestion, no nasal discharge Cardiovascular: shortness of breath, no chest pain, no orthopnea, no palpitations Respiratory: cough, shortness of breath, wheezing Gastrointestinal: no abdominal pain, no nausea, no vomiting Genitourinary Female: no flank pain, no dysuria Musculoskeletal: no myalgias, no arthritis Integumentary: no rash, no lesions Neurological: weakness, no numbness, no tingling, no seizures Psychiatric: no anxiety, no depression Endocrine: no cold intolerance, no heat intolerance, no polydipsia, no polyuria Hematologic/Lymphatic: no easy bruising, no easy bleeding Allergic/Immunologic: no urticaria, no allergic rhinitis Exam - Constitutional Vitals: Temp Pulse Resp BP Pulse Ox 98 F 112 H 22 100/59 91 08/09/20 06:30 08/09/20 08:45 08/09/20 08:45 08/09/20 10:01 08/09/20 10:01 General appearance: Present: no acute distress, well-nourished - Neck Neck: Present: supple, normal ROM - Respiratory Respiratory effort: normal Respiratory: bilateral: diminished, rhonchi (Occasional rhonchi), wheezing, negative: rales - Cardiovascular Rhythm: regular Heart Sounds: Present: S1 & S2 - Extremities Extremities: no ischemia, No edema - Abdominal General gastrointestinal: Present: soft, non-tender, non-distended, normal bowel sounds - Integumentary Integumentary: Present: clear, warm - Musculoskeletal Musculoskeletal: strength equal bilaterally - Psychiatric Psychiatric: appropriate mood/affect, cooperative - Neurologic Neurologic: moves all extremities Results - Labs CBC & Chem 7: 08/09/20 06:59 08/09/20 06:59 Labs: Abnormal lab results 08/09/20 08/09/20 Range/Units 06:59 06:59 WBC 12.7 H (4.5-11.0) K/mm3 MCH 33 H (28-32) pg RDW 13.0 L (13.2-15.2) % Lymph % (Auto) 4.5 L (13.4-35.0) % Lymph # (Auto) 0.6 L (1.2-5.4) K/mm3 Seg Neutrophils % 87.2 H (40.0-70.0) % Seg Neutrophils # 11.0 H (1.8-7.7) K/mm3 Glucose 156 H (65-100) mg/dL Calcium 10.3 H (8.4-10.2) mg/dL Assessment and Plan --Acute hypoxic respiratory failure; present on admission O2 sats checked by EMS was 80% room air onsite Significantly improved with supplemental oxygen Secondary to acute exacerbation of bronchial asthma --Acute exacerbation of bronchial asthma; Oxygen, titrate O2 sats to more than 90% Nebulizers, IV steroids, inhalation steroids Empiric antibiotics, supportive long term O2 evaluation at discharge --Acute bronchitis; Nebulizers/bronchodilators, antibiotics Cough medicine if needed, home O2 evaluation --History of marijuana use; Strongly advised to quit recreational drug use --DVT prophylaxis; Lovenox 40 mg subcu daily Please closely monitor the patient and adjust the management as needed Plan of care reviewed with the patient and his nurse DC planning per case management Home O2 evaluation at discharge
[2020-08-09] MEDS ORDERED: ALBUTEROL 2.5 MG/3 ML NEBU IH PRN (11:32)
[2020-08-09] MEDS: IPRATROPIUM/ALBUTEROL SULFATE 3 ML AMPUL.NEB IH SCH ×4 (14:15→21:36)
[2020-08-09] MEDS: methylPREDNISolone Sod Succinate 125 MG/2 ML INJ IV SCH ×2 (14:33→21:46)
[2020-08-09] MEDS: BUDESONIDE 0.5 MG/2 ML NEBU IH SCH ×2 (20:04→21:36)
[2020-08-09] MEDS ORDERED: ENOXAPARIN 40 MG/0.4 ML INJ SUB-Q SCH (22:00)
[2020-08-10] MEDS ORDERED: ACETAMINOPHEN 325 MG TAB PO PRN (02:35)
[2020-08-10] MEDS: methylPREDNISolone Sod Succinate 125 MG/2 ML INJ IV SCH ×2 (05:50→17:43)
[2020-08-10] MEDS: IPRATROPIUM/ALBUTEROL SULFATE 3 ML AMPUL.NEB IH SCH ×3 (07:54→17:44)
[2020-08-10] MEDS: BUDESONIDE 0.5 MG/2 ML NEBU IH SCH (07:54)
--- NOTE | 2020-08-10 12:09 | Discharge Summary ---
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 When EMS arrived they found her O2 sats on room air was about 80%, patient received albuterol inhalation and 1 dose of high-dose Solu-Medrol, improved significantly with nasal cannula oxygen. No exposure to Covid 19, not vaccinated. Patient was managed with oxygen to titrate O2 sats more than 90%, IV steroids high-dose, nebulizers, inhalation steroids and empiric antibiotics. Patient's symptoms slowly but gradually improved Today patient feels slightly better ambulatory tolerating oral nutrition, resting room air and ambulatory room air O2 sats are more than 94%, no indication for home oxygen Vital signs stable, physical examination bilateral lung wheezes significantly improved Patient is hemodynamically and clinically stable for discharge, on inhalers, tapering dose of steroids, oral antibiotics, and antihistamine Patient strongly advised to avoid any allergens that may aggravate her asthma exacerbation And also advised to find a primary care physician as well as 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 Patient is stable at discharge Advised 2 days of work excuse on 08/11 and 08/12/2020. Discharge diagnosis: --Acute hypoxic respiratory failure; present on admission O2 sats checked by EMS was 80% room air onsite Significantly improved with nebulizer steroids antibiotics and oxygen Today patient's resting room air and ambulatory room air O2 sats are more than 94%, no indication for home oxygen --Acute exacerbation of bronchial asthma; Symptoms slightly improved, DC on steroids, antibiotics, inhalers And antihistamines --Acute bronchitis; Received nebulizers/bronchodilators, antibiotics --History of marijuana use; Strongly advised to quit recreational drug use --DVT prophylaxis; Lovenox subcu Disposition: DC-01 TO HOME OR SELFCARE Final Discharge Diagnosis (Prints w/discharge instructions): Acute hypoxic respiratory failure. Acute exacerbation of bronchial asthma. Acute bronchitis. History of marijuana use. DVT prophylaxis Time spent for discharge: 35 min Core Measure Documentation - Palliative Care Palliative Care/ Comfort Measures: Not Applicable - Core Measures Any of the following diagnoses?: none Exam - Constitutional Vitals: Temp Pulse Resp BP Pulse Ox 97.9 F 75 18 109/43 94 08/10/20 05:17 08/10/20 05:17 08/10/20 05:17 08/10/20 05:17 08/10/20 05:17 General appearance: Present: no acute distress, well-nourished - EENT Eyes: Present: PERRL, EOM intact - Neck Neck: Present: supple, normal ROM - Respiratory Respiratory effort: normal Respiratory: bilateral: diminished, negative: rales, rhonchi, wheezing - Cardiovascular Rhythm: regular Heart Sounds: Present: S1 & S2 - Extremities Extremities: no ischemia, No edema - Abdominal General gastrointestinal: Present: soft, non-tender, non-distended, normal bowel sounds - Integumentary Integumentary: Present: clear, warm - Musculoskeletal Musculoskeletal: strength equal bilaterally - Psychiatric Psychiatric: appropriate mood/affect, cooperative Plan Activity: no restrictions Diet: regular Additional Instructions: Patient's room air resting and ambulatory O2 sats more than 94%, no indication for home oxygen. Advised to see primary care physician/[facility] in 1 to 2 weeks. If you have worsening symptoms contact MD or go to emergency room as needed. Advised to days work excuse on 08/11/2020 and 08/12/2020 and may return to work on 08/13/2020 if you feel better Follow up with: PRIMARY CARE,MD [Primary Care Provider] - 3-5 Days Prescriptions: levoFLOXacin [Levaquin] 750 mg PO QDAY #5 tablet predniSONE 1 tab PO QDAY #26 tab Albuterol Sulfate [Proair Respiclick] 90 mcg IH QID PRN #1 aer.pow.ba PRN Reason: Wheezing Cetirizine HCl [ZyrTEC 10mg cap] 20 mg PO DAILY PRN #10 capsule PRN Reason: Congestion
[2020-08-10 12:17] VITALS: BP 96/53
--- NOTE | 2020-08-12 17:44 | Electrocardiograph Report ---
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
== END 2020-08-10 18:05 | disposition home or self-care (01) | DRG 189 ==
LOC: ED 06:22 → 3A 19:11
PROVIDERS: ADMIT Internal Medicine; ATTEND Internal Medicine
DX: J96.01 Acute respiratory failure with hypoxia (principal); J45.901 Unspecified asthma with (acute) exacerbation; J20.9 Acute bronchitis, unspecified; Z87.891 Personal history of nicotine dependence; Z98.51 Tubal ligation status; Z79.899 Other long term (current) drug therapy; Z79.52 Long term (current) use of systemic steroids; Z91.041 Radiographic dye allergy status; Z91.013 Allergy to seafood
CPT/HCPCS: 36415; 71045; 80048; 85025; 85379; 93005; 94640; 94644; 96361; 96365; G0378; J1650; J1956; J2930; J3475; J7030